=== PATIENT | male | born 1980 | race Caucasian/White ===

== ENCOUNTER 2019-12-03 14:32 | Outpatient (REF) | payer OTHER, SELFPAY | END 2019-12-03 14:33 | disposition home or self-care (01) | LOC: HO.LAB 14:32 | PROVIDERS: Visit Provider Internal Medicine | DX: Z20.828 Contact with and (suspected) exposure to other viral communicable diseases (principal) | CPT/HCPCS: 87635 ==

== ENCOUNTER 2023-10-10 10:02 | Outpatient (AMB) | payer BC, SELFPAY ==
[2023-10-10 10:05] VITALS: BP 166/92; PULSE 87; O2SAT 98; BMI 39.7
--- NOTE | 2023-10-10 10:05 | A.OFFPC_ITS ---
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 Noted to have an elevated blood pressure. ER told him had ekg- changes [facility] Surgical History (Updated 10/10/23 @ 11:09 by Jorge Clark MD) History of carpal tunnel release of both wrists Family History (Updated 10/10/23 @ 10:17 by Carol Garcia CMA) Mother Diabetes Father Hypertension Sister No problems noted. Sister Lupus Thyroid condition Sister Hypertension Sister No problems noted. Son No problems noted. Son No problems noted. Son No problems noted. Son No problems noted. Son No problems noted. Son No problems noted. Daughter No problems noted. Social History (Updated 10/10/23 @ 11:10 by Jorge Clark MD) Housing: Apartment Alcohol intake: current Comment: 3x a week- 2-3 beers Patient Tobacco Use Status: Former Tobacco user Tobacco use type: Cigarette Years Smoked: quit 2013 e-Cigarette/Vaping Use: Former Use Second Hand Smoke Exposure: No service: No Current occupational status: employed Current occupation: Merchandizer at [employer] Current occupational exposures/hazards: No Cognitive needs: No Hearing needs: No Vision needs: No Questionnaire PHQ-9 Over the last 2 weeks, how often have you been bothered by any of the following problems? 1. Little interest or pleasure in doing things: not at all 2. Feeling down, depressed, or hopeless: not at all 3. Trouble falling or staying asleep, or sleeping too much: not at all 4. Feeling tired or having little energy: not at all 5. Poor appetite or overeating: not at all 6. Feeling bad about yourself - or that you are a failure or have let yourself or your family down: not at all 7. Trouble concentrating on things, such as reading the newspaper or watching television: not at all 8. Moving or speaking so slowly that other people could have noticed. Or the opposite - being so fidgety or restless that you have been moving around a lot more than usual: not at all 9. Thoughts that you would be better off or of hurting yourself in some way: not at all Total score: 0 Source: Developed by Drs. Elpidio Mcrae, Eli Sykes, Bentley Rodas and colleagues, with an educational kosta from [employer]. Thrive Questionnaire Date Thrive assessed: 10/10/23 I am a: Patient What is your living situation today?: I have a steady place to live Within the past 12 months, did the food you bought not last and you didn't have the money to get more?: Never true Within the past 12 months, did you worry whether your food would run out before you got money to buy more?: Never true Do you have trouble paying for medicines?: No Do you have trouble getting transportation to medical appointments?: No Do you have trouble paying your heating and electricity bill?: No Do you have trouble taking care of your child, family member or friend?: No Do you have trouble with day-to-day activities such as bathing, preparing meals, shopping, managing finances, etc.?: No Are you currently unemployed and looking for a job?: No Are you interested in more education?: No Please select the resources that you would like help with: None Currently or been in a relationship where the following occur: No concerns reported THRIVE Score: 0 AUDIT C Alcohol Use Questionnaire (AUDIT-C) 1. How often do you have a drink containing alcohol?: Monthly or less 2. How many drinks containing alcohol do you have on a typical day when you are drinking?: 1 or 2 3. How often do you have six or more drinks on one occasion?: Less than monthly Total Score: 2 DALY-7 AMB Questionnaire DALY-7 Date DALY - 7 assessed: 10/10/23 Feeling nervous, anxious, or on edge: 0 = Not at all Not being able to stop or control worryin = Several days Worrying too much about different things: 1 = Several days Trouble relaxin = Nearly every day Being so restless that it is hard to sit still: 0 = Not at all Becoming easily annoyed or irritable: 3 = Nearly every day Feeling afraid as if something awful might happen: 0 = Not at all Total DALY-7 score (0-4 normal; 5-9 mild; 10-14 moderate; 15-21 severe): 8 Source: Developed by Drs. Elpiido Mcrae, Eli Sykes, Bentley Rodas and colleagues, with an educational kosta from [employer]. Physical exam (Primary Care) Vital Signs: Last Vital Signs Pulse 87 10/10/23 10:05 BP 166/92 H 10/10/23 10:05 Pulse Ox 98 10/10/23 10:05 Oxygen Delivery Method Room Air 10/10/23 10:05 BMI result Body Mass Index 39.7 Tobacco/Smoking Status: Tobacco use Status Tobacco use date assessed 10/10/23 10/10/23 10:19 Patient Tobacco Use Status Former Tobacco user 10/10/23 10:19 Tobacco use type Cigarette 10/10/23 10:19 e-Cigarette/Vaping Use Former Use 10/10/23 10:19 PHQ-9: PHQ-9 Score PHQ-9: Total score 0 10/10/23 10:21 Thrive Assessment: Date of Thrive Assessment Date Thrive assessed 10/10/23 10/10/23 10:09 Currently or been in a relationship where the following occur: No concerns reported Const General: alert; No acute distress Eyes Conjunctivae: conjunctivae normal Resp Auscultation: clear to auscultation bilaterally Cardio Rate: regular rate Rhythm: regular rhythm GI Inspection: Yes normal to inspection Extrem General: Yes normal to inspection and No edema Results AMB Hemoglobin A1c AMB Hemoglobin A1c 13.6 % Last Edit by Carol Garcia CMA on 10/10/23 10:21 Results Reviewed Results Reviewed: Laboratory Last Values Hgb A1c (Clinic) 13.6 % (4.0-6.0) H 10/10/23 10:19 Assessment and Plan Assessment & Plan (1) Bilateral carpal tunnel syndrome: Code(s): G56.03 - Carpal tunnel syndrome, bilateral upper limbs (2) Type 2 diabetes mellitus with hyperglycemia: Code(s): E11.65 - Type 2 diabetes mellitus with hyperglycemia Plan: Decrease the amount of carbohydrate intake, pasta, bread, rice and potatoes are all sugar and that is aside from all the sweet stuff, remember that fruits are good but they are Sweet also. Hemoglobin A1c goal of less than 6.5. (3) Hypertriglyceridemia: Code(s): E78.1 - Pure hyperglyceridemia Plan: Avoid fried foods, chicken skin, eggs, butter margarine, pastries and meat. Be it pork or beef they have a lot of cholesterol LDL goal of less than 130 and triglyceride of less than 150. (4) Obesity: Code(s): E66.9 - Obesity, unspecified Plan: Diet and exercise (5) Blood pressure elevated without history of HTN: Code(s): R03.0 - Elevated blood-pressure reading, without diagnosis of hypertension Plan: Monitor the blood pressure and record. Low-salt diet. (6) Hypertension: Code(s): I10 - Essential (primary) hypertension (7) Shoulder pain, right: Code(s): M25.511 - Pain in right shoulder Orders: Orders AMB Hemoglobin A1c Today Z13.9 - Encounter for screening, unspecified XR chest 2V Today M25.511 - Pain in right shoulder Free T4 (Free Thyroxine) Today E11.65 - Type 2 diabetes mellitus with hyperglycemia Creatinine Urine Today E11.65 - Type 2 diabetes mellitus with hyperglycemia Thyroid Stimulating Hormone Today E11.65 - Type 2 diabetes mellitus with hyperglycemia XR shoulder RT min 2V Today M25.511 - Pain in right shoulder Complete Blood Count Auto Diff Today E11.65 - Type 2 diabetes mellitus with hyperglycemia Comprehensive Met. Panel Today E11.65 - Type 2 diabetes mellitus with hyperglycemia Microalbumin, Random (w Creat) Today E11.65 - Type 2 diabetes mellitus with hyperglycemia Lipid Panel Today E11.65 - Type 2 diabetes mellitus with hyperglycemia, E78.00 - Pure hypercholesterolemia, unspecified Vitamin B12 and Folate Today E11.65 - Type 2 diabetes mellitus with hyperglycemia Referrals Ophthalmology Referral E11.65 - Type 2 diabetes mellitus with hyperglycemia Medications: New metformin 500 mg PO BIDWMEAL 60 tabs 2RF E11.65 - Type 2 diabetes mellitus with hyperglycemia gabapentin 100 mg PO BEDTIME 30 caps 0RF M25.511 - Pain in right shoulder lisinopril 10 mg PO DAILY 30 tabs 2RF I10 - Essential (primary) hypertension Coding Level of Care Code New Pt Level 4 (80145) Diagnoses Bilateral carpal tunnel syndrome G56.03 Type 2 diabetes mellitus with hyperglycemia E11.65 Hypertriglyceridemia E78.1 Obesity E66.9 Blood pressure elevated without history of HTN R03.0 Hypertension I10 Shoulder pain, right M25.511
== END 2023-10-10 11:32 | disposition home or self-care (01) ==
PROVIDERS: PCP Internal Medicine; Visit Provider Internal Medicine
DX: G56.03 Carpal tunnel syndrome, bilateral upper limbs (principal); E11.65 Type 2 diabetes mellitus with hyperglycemia; E66.9 Obesity, unspecified; Z68.39 Body mass index [BMI] 39.0-39.9, adult; E78.1 Pure hyperglyceridemia; R03.0 Elevated blood-pressure reading, without diagnosis of hypertension; I10 Essential (primary) hypertension; M25.511 Pain in right shoulder
CPT/HCPCS: 83036; 99204

== ENCOUNTER 2023-10-10 11:38 | Outpatient (REF) | payer BC, SELFPAY ==
--- NOTE | ~2023-10-10 | XR_ITS ---
EXAMINATION: XR CHEST CLINICAL INFORMATION: Pain COMPARISON: Prior chest dated June 2019 TECHNIQUE: 2 views of the chest were obtained. FINDINGS: No significant abnormality is noted involving the heart, lungs, mediastinum, bony thorax or soft tissues. XR/XR chest 2V IMPRESSION: Unremarkable examination. Electronically signed by: Alonzo Payton MD 10/31/2023 06:44 AM EDT RP
--- NOTE | ~2023-10-10 | XR_ITS ---
EXAMINATION: XR SHOULDER, RIGHT CLINICAL INFORMATION: Pain in right shoulder COMPARISON: None available. TECHNIQUE: AP external rotation, Grashey, scapular Y, and axillary views of the right shoulder. FINDINGS: Tiny calcification adjacent to the greater tuberosity. The glenohumeral joint and acromioclavicular joint are normal. Surrounding bone and soft tissues normal. XR/XR shoulder RT min 2V IMPRESSION: Tiny calcification adjacent to the greater tuberosity. This can be seen with calcific tendinosis or calcific tendinitis. Electronically signed by: Alonzo Payton MD 10/31/2023 06:45 AM EDT
[2023-10-10 11:54] LABS: MANUAL DIFF FLAG NO
[2023-10-10 12:20] LABS: Basophils Percent Auto 0.5 % (0-2); Eosinophils Percent Auto 0.7 % (0-4); Hematocrit 44.8 % (42.0-52.0); Hemoglobin 15.8 g/dl (14.0-18.0); Imm Gran Abs Auto 0.03 X10*3/uL (0.00-0.03); Imm Gran Pct Auto 0.5 % (0.0-0.4); Lymphocytes Absolute Auto 2.3 X10*3/uL (1.2-4.9); Lymphocytes Percent Auto 37.7 % (20-40); Mean Corpuscular HGB Conc 35.3 g/dl (31.0-36.0); Mean Corpuscular Hemoglobin 30.4 pg (27.0-33.0); Mean Corpuscular Volume 86.2 fL (80.0-98.0); Mean Platelet Volume 10.9 fL (9.4-12.4); Monocytes Absolute Auto 0.3 X10*3/uL (0.1-1.2); Neutrophils Absolute Auto 3.4 x10*3/uL (2.0-8.3); Neutrophils Percent Auto 55.6 % (45-73); Platelet Count 260 X10*3/uL (160-400); Red Cell Distribution Width 12.1 % (11.0-16.0); White Blood Count 6.1 X10*3/uL (4.8-10.8)
[2023-10-10 12:42] LABS: Alanine Aminotransferase 53 U/L (0-40); Albumin Level 4.4 g/dL (3.5-5.0); Alkaline Phosphatase 75 U/L (39-117); Anion Gap 16 (12-20); Aspartate Amino Transferase 25 U/L (5-37); Bilirubin Total 0.7 mg/dL (0.0-1.0); Blood Urea Nitrogen 13 mg/dL (9-16); Calcium 9.8 mg/dL (8.4-10.2); Carbon Dioxide 23 mmol/L (22-29); Chloride 102 mmol/L (96-108); Cholesterol 276 mg/dL (<200); Estimated Glomerular Filt Rate > 60; Glucose Random 320 mg/dL (60-115); HDL Cholesterol 34 mg/dL (>40); Potassium 4.5 mmol/L (3.3-5.1); Sodium 136 mmol/L (135-145); Triglycerides 431 mg/dL (<150)
[2023-10-10 12:57] LABS: Free T4 (Free Thyroxine) 0.99 ng/dL (0.71-1.85); Thyroid Stimulating Hormone 0.87 uIU/mL (0.32-4.0)
[2023-10-10 13:10] LABS: Folate 14.1 ng/mL (> or = 4.0); Vitamin B12 567 pg/mL (200-900)
[2023-10-10 14:06] LABS: Creatinine Urine 110.63 mg/dL
== END 2023-10-10 11:39 | disposition home or self-care (01) ==
LOC: HO.LAB 11:38
PROVIDERS: PCP Internal Medicine; Visit Provider Internal Medicine
DX: M25.511 Pain in right shoulder (principal); E11.65 Type 2 diabetes mellitus with hyperglycemia; E78.00 Pure hypercholesterolemia, unspecified
CPT/HCPCS: 36415; 71046; 73030; 80053; 80061; 82043; 82570; 82607; 82746; 84439; 84443; 85025

== ENCOUNTER 2023-11-10 13:54 | Outpatient (AMB) | payer BC, SELFPAY ==
[2023-11-10 14:00] VITALS: BP 162/98; PULSE 105; O2SAT 97; BMI 39.7
--- NOTE | 2023-11-10 14:00 | MHC.PC.OV ---
Vital Signs 11/10/23 14:00 Height 5 ft 6 in Weight 246 lb BMI 39.7 BP 162/98 H Blood Pressure Location Lt brachial Position Sitting Pulse 105 H Pulse Source Pulse Oximeter Pulse Oximetry (%) 97 Oxygen Delivery Method Room Air Intake Visit Reasons: [facility] 10/21 rt chest pain Intake Note: Patient is here to follow-up after a visit the emergency department at [facility] on 10/22/23 Commercial Loan Manager Required: No Allergies No Known Allergies [No Known Allergies*] Allergy (Verified 11/10/23 14:01) Medication List - Last Reconciled 11/10/23 by Ella Barrientos PA-C gabapentin 100 mg PO BEDTIME lisinopril 10 mg PO DAILY metformin 500 mg PO BIDWMEAL Tobacco use date assessed: 11/10/23 Dental Screening Dental Screen Date: 10/10/23 HPI [facility] 10/21 rt chest pain HPI Details 42-year-old male with past medical history of hypertriglyceridemia, diabetes mellitus, hypertension last seen by Dr. Clark coming in for hospital discharge follow up.? In review of the notes, patient was seen in [facility] ED 10/23/2023 for upper right back pain workup was negative and advised to use Tylenol and gabapentin as needed for pain. Was having right-sided shoulder and back pain which was radiating to the chest at the time of the ER visit. Chest pain has resolved at this time but still having right-sided shoulder and armpit pain. He states the pain feels like an electric shock from the right shoulder into the armpit and down his arm occasionally. When he has the episodes of pain he feels his shirt can not even touch his shoulder without severe pain. He was given gabapentin by Dr. Clark at last visit and states this is not improved. [facility] Surgical History (Updated 10/10/23 @ 11:09 by Jorge Clark MD) History of carpal tunnel release of both wrists Family History (Updated 10/10/23 @ 10:17 by Carol Garcia CMA) Mother Diabetes Father Hypertension Sister No problems noted. Sister Lupus Thyroid condition Sister Hypertension Sister No problems noted. Son No problems noted. Son No problems noted. Son No problems noted. Son No problems noted. Son No problems noted. Son No problems noted. Daughter No problems noted. Social History (Updated 10/10/23 @ 11:10 by Jorge Clark MD) Housing: Apartment Alcohol intake: current Comment: 3x a week- 2-3 beers Patient Tobacco Use Status: Former Tobacco user Tobacco use type: Cigarette Years Smoked: quit 2013 e-Cigarette/Vaping Use: Former Use Second Hand Smoke Exposure: No service: No Current occupational status: employed Current occupation: Merchandizer at [employer] Current occupational exposures/hazards: No Cognitive needs: No Hearing needs: No Vision needs: No Questionnaire Thrive Questionnaire Date Thrive assessed: 10/03/23 I am a: Patient What is your living situation today?: I have a steady place to live Within the past 12 months, did the food you bought not last and you didn't have the money to get more?: Never true Within the past 12 months, did you worry whether your food would run out before you got money to buy more?: Never true Do you have trouble paying for medicines?: No Do you have trouble getting transportation to medical appointments?: No Do you have trouble paying your heating and electricity bill?: No Do you have trouble taking care of your child, family member or friend?: No Do you have trouble with day-to-day activities such as bathing, preparing meals, shopping, managing finances, etc.?: No Are you currently unemployed and looking for a job?: No Are you interested in more education?: No Please select the resources that you would like help with: None Currently or been in a relationship where the following occur: No concerns reported THRIVE Score: 0 AUDIT C Alcohol Use Questionnaire (AUDIT-C) 1. How often do you have a drink containing alcohol?: Monthly or less 2. How many drinks containing alcohol do you have on a typical day when you are drinking?: 1 or 2 3. How often do you have six or more drinks on one occasion?: Less than monthly Total Score: 2 DALY-7 AMB Questionnaire DALY-7 Date DALY - 7 assessed: 10/10/23 Source: Developed by Drs. Elpidio Mcrae, Eli Syeks, Bentley Rodas and colleagues, with an educational kosta from [employer]. Review of Systems Const Denies body aches, Denies chills and Denies fever(s) Eyes Reports no additional complaints ENT Reports no additional complaints Card Denies chest pain, Denies leg edema, Denies lightheadedness and Denies dyspnea Resp Denies dyspnea GI Reports no additional complaints Musc Reports as per HPI Skin/Breast Details: No rashes or lesions Physical exam (Primary Care) Vital Signs: Oxygen Delivery Method Room Air 11/10/23 14:00 Tobacco/Smoking Status: Tobacco use Status Tobacco use date assessed 11/10/23 11/10/23 14:02 Patient Tobacco Use Status Former Tobacco user 11/10/23 14:02 Tobacco use type Cigarette 11/10/23 14:02 e-Cigarette/Vaping Use Former Use 11/10/23 14:02 Thrive Assessment: Date of Thrive Assessment Date Thrive assessed 10/03/23 11/10/23 14:02 Currently or been in a relationship where the following occur: No concerns reported Const General: cooperative, healthy appearing, comfortable and no acute distress Orientation/consciousness: patient oriented x3 HENMT Head: Yes normocephalic Ears: hearing grossly normal bilaterally General nose exam: Normal external nose present Eyes General: appearance normal, both eyes and all related structures Conjunctivae: conjunctivae normal Neck Neck: Yes full ROM and Yes no lymphadenopathy Resp Effort & Inspection: normal respiratory effort Auscultation: clear to auscultation bilaterally, no crackles, no rales, no rhonchi and no wheezes Cardio Rate: regular rate Rhythm: regular rhythm Skin General skin exam: no rashes or lesions noted Neuro General: patient oriented x3 Gait exam (Neuro): Normal gait present Extrem Other: Tenderness to palpation over right lateral shoulder into axillary area General: Yes normal to inspection, Yes full ROM and No edema Psych Affect: normal affect Attitude: cooperative Insight: Good insight present (Psych) Judgement: Good judgement present (Psych) Assessment and Plan Assessment & Plan (1) Shoulder pain, right: Code(s): M25.511 - Pain in right shoulder Plan: Patient continues to have pain in the right shoulder despite use of gabapentin. Shoulder x-ray and chest x-ray are both negative. Etiology of pain unclear could be muscular. Trial muscle relaxer as needed for pain and advised patient to discontinue the gabapentin while taking this medication. May also use Tylenol and ibuprofen as well as lidocaine patches for pain. Follow up as needed. (2) Hypertension: Code(s): I10 - Essential (primary) hypertension Plan: Blood pressure elevated again at today's visit and patient states his home readings have also been elevated over 140/90. Increase lisinopril to 20 mg and follow up at next visit. Continue to avoid salt and continue taking blood pressures at home and bring log to next appointment. Plan This note was constructed using voice recognition software. While every effort has been made to ensure accuracy and garage supervisor, still areas may have been included sometimes these areas may affect the content or meeting of the given symptoms. Total time spent caring for the patient today was 30 minutes. This includes time spent before the visit reviewing the chart, time spent during the visit, and time spent after the visit and documentation. Medications: New cyclobenzaprine 5 mg PO BEDTIME PRN 14 tabs 0RF muscle spasm lisinopril 20 mg PO DAILY 30 tabs 1RF Discontinued lisinopril Discontinued Reason: Patient no longer taking 10 mg PO DAILY 90 tabs 0RF I10 - Essential (primary) hypertension Coding Level of Care Code Est Pt Level 3 (09998) Diagnoses Shoulder pain, right M25.511 Hypertension I10
== END 2023-11-10 14:47 | disposition home or self-care (01) ==
PROVIDERS: PCP Internal Medicine
DX: M25.511 Pain in right shoulder (principal); I10 Essential (primary) hypertension

== ENCOUNTER → 2023-11-10 13:54 | Outpatient (BNVA) | payer BC, SELFPAY | PROVIDERS: PCP Internal Medicine | DX: M25.511 Pain in right shoulder (principal); I10 Essential (primary) hypertension; Z79.899 Other long term (current) drug therapy ==

== ENCOUNTER 2023-11-27 11:19 | Outpatient (AMB) | payer BC, SELFPAY ==
[2023-11-27 11:20] VITALS: BP 168/96; PULSE 92; O2SAT 98; BMI 39.4
--- NOTE | 2023-11-27 11:20 | MHC.PC.OV ---
Vital Signs 11/27/23 11:20 Height 5 ft 6 in Weight 244 lb BMI 39.4 BP 168/96 H Blood Pressure Location Lt brachial Position Sitting Pulse 92 Pulse Source Pulse Oximeter Pulse Oximetry (%) 98 Oxygen Delivery Method Room Air Intake Visit Reasons: DM Allergies No Known Allergies [No Known Allergies*] Allergy (Verified 11/27/23 11:24) Medication List - Last Reconciled 11/27/23 by Ella Barrientos PA-C gabapentin 100 mg PO BEDTIME lisinopril 20 mg PO DAILY metformin 500 mg PO BIDWMEAL Tobacco use date assessed: 11/10/23 Dental Screening Dental Screen Date: 10/10/23 HPI DM HPI Details 42-year-old male with past medical history of hypertriglyceridemia, diabetes mellitus, hypertension last seen November 06 coming in for follow up on diabetes. Review of the notes, patient's lisinopril was intake to 20 mg at last appointment. today he tells us he has been taking his blood pressures at home which have been 150-160 systolic and 90s diastolic. He has not noticed an improvement in pressures since the increase in lisinopril. His blood sugars are consistently in the 200-300 range but he has been working on cutting down on carbs and has eliminated soda and juices from his diet. He has no other concerns today. [facility] Surgical History (Updated 10/10/23 @ 11:09 by Jorge Clark MD) History of carpal tunnel release of both wrists Family History (Updated 10/10/23 @ 10:17 by Carol Garcia CMA) Mother Diabetes Father Hypertension Sister No problems noted. Sister Lupus Thyroid condition Sister Hypertension Sister No problems noted. Son No problems noted. Son No problems noted. Son No problems noted. Son No problems noted. Son No problems noted. Son No problems noted. Daughter No problems noted. Social History (Updated 10/10/23 @ 11:10 by Jorge Clark MD) Housing: Apartment Alcohol intake: current Comment: 3x a week- 2-3 beers Patient Tobacco Use Status: Former Tobacco user Tobacco use type: Cigarette Years Smoked: quit 2013 e-Cigarette/Vaping Use: Former Use Second Hand Smoke Exposure: No service: No Current occupational status: employed Current occupation: Merchandizer at [employer] Current occupational exposures/hazards: No Cognitive needs: No Hearing needs: No Vision needs: No Questionnaire Thrive Questionnaire Date Thrive assessed: 10/03/23 I am a: Patient What is your living situation today?: I have a steady place to live Within the past 12 months, did the food you bought not last and you didn't have the money to get more?: Never true Within the past 12 months, did you worry whether your food would run out before you got money to buy more?: Never true Do you have trouble paying for medicines?: No Do you have trouble getting transportation to medical appointments?: No Do you have trouble paying your heating and electricity bill?: No Do you have trouble taking care of your child, family member or friend?: No Do you have trouble with day-to-day activities such as bathing, preparing meals, shopping, managing finances, etc.?: No Are you currently unemployed and looking for a job?: No Are you interested in more education?: No Please select the resources that you would like help with: None Currently or been in a relationship where the following occur: No concerns reported THRIVE Score: 0 AUDIT C Alcohol Use Questionnaire (AUDIT-C) 1. How often do you have a drink containing alcohol?: Monthly or less 2. How many drinks containing alcohol do you have on a typical day when you are drinking?: 1 or 2 3. How often do you have six or more drinks on one occasion?: Less than monthly Total Score: 2 DALY-7 AMB Questionnaire DALY-7 Date DALY - 7 assessed: 10/10/23 Source: Developed by Drs. Elpidio Mcrae, Eli Sykes, Bentley Rodas and colleagues, with an educational kosta from [employer]. Review of Systems Const Denies body aches and Denies fever(s) ENT Reports no additional complaints Card Denies chest pain, Denies leg ulcers, Denies leg edema, Denies lightheadedness and Denies dyspnea Resp Denies dyspnea GI Reports no additional complaints Denies dysuria and Reports urinary frequency Musc Reports no additional complaints Neuro Details: Numbness and tingling in bilateral feet Physical exam (Primary Care) Vital Signs: Last Vital Signs Pulse 92 11/27/23 11:20 BP 168/96 H 11/27/23 11:20 Pulse Ox 98 11/27/23 11:20 Oxygen Delivery Method Room Air 11/27/23 11:20 BMI result Body Mass Index 39.4 Tobacco/Smoking Status: Tobacco use Status Tobacco use date assessed 11/10/23 11/27/23 11:30 Patient Tobacco Use Status Former Tobacco user 11/27/23 11:30 Tobacco use type Cigarette 11/27/23 11:30 e-Cigarette/Vaping Use Former Use 11/27/23 11:30 Thrive Assessment: Date of Thrive Assessment Date Thrive assessed 10/03/23 11/27/23 11:30 Currently or been in a relationship where the following occur: No concerns reported Const General: cooperative, healthy appearing, comfortable and no acute distress Orientation/consciousness: patient oriented x3 HENMT Head: Yes normocephalic Ears: hearing grossly normal bilaterally General nose exam: Normal external nose present Eyes General: appearance normal, both eyes and all related structures Conjunctivae: conjunctivae normal Neck Neck: Yes full ROM and Yes no lymphadenopathy Resp Effort & Inspection: normal respiratory effort Auscultation: clear to auscultation bilaterally, no crackles, no rales, no rhonchi and no wheezes Cardio Rate: regular rate Rhythm: regular rhythm Skin General skin exam: no rashes or lesions noted Neuro General: patient oriented x3 Gait exam (Neuro): Normal gait present Extrem General: Yes normal to inspection, Yes full ROM and No edema Psych Affect: normal affect Attitude: cooperative Insight: Good insight present (Psych) Judgement: Good judgement present (Psych) Coding Level of Care Code Est Pt Level 4 (44816) Diagnoses Hypertension I10 Hypertriglyceridemia E78.1 Type 2 diabetes mellitus with hyperglycemia E11.65 Assessment & Plan Assessment & Plan (1) Hypertension: Code(s): I10 - Essential (primary) hypertension Category: Medical Plan: Changed Lisinopril 20mg to Lisinopril-HCTZ combo pill to bring down the pressures. Avoid salt intake and encourage healthy diet and regular exercise. Follow up in 2 months and continue to monitor pressures during that time and bring log to next appt. (2) Hypertriglyceridemia: Code(s): E78.1 - Pure hyperglyceridemia Category: Medical Plan: Avoid foods that are high in cholesterol such as red meat, fried foods, eggs and baked goods. Triglyceride goal of less than 150 and LDL goal of less than 100. Will start patient on Simvastatin 20mg and recheck labs in 2 months prior to next appt. Discussed the importance of dietary and lifestyle changes. (3) Type 2 diabetes mellitus with hyperglycemia: Code(s): E11.65 - Type 2 diabetes mellitus with hyperglycemia Category: Medical Plan: Decrease the amount of carbohydrates such as pasta, bread, rice, and potatoes and limit the amount of sweets. Although fruits are generally healthy they should be eaten in moderation as they are still high in sugar. Hemoglobin A1c goal of less than 7%. Continue on Metformin and will add Ozempic to medication regimen. Advised patient to have updated bloodwork before next appt in 2 months. Plan This note was constructed using voice recognition software. While every effort has been made to ensure accuracy and biodiesel product development manager, still areas may have been included sometimes these areas may affect the content or meeting of the given symptoms. Total time spent caring for the patient today was 30 minutes. This includes time spent before the visit reviewing the chart, time spent during the visit, and time spent after the visit and documentation. Orders: Orders Lipid Panel Today Z00.00 - Encounter for general adult medical examination without abnormal findings Medications: New lisinopril-hydrochlorothiazide 20-12.5 mg 1 tab PO DAILY 30 tabs 2RF simvastatin 20 mg PO BEDTIME 30 tabs 2RF semaglutide (Ozempic) for 4 weeks; then increase to 0.5 mg every week 0.25 mg (0.368 mL) subcut QWEEK 3 mL 0RF Discontinued lisinopril Discontinued Reason: Patient no longer taking 20 mg PO DAILY 30 tabs 1RF
== END 2023-11-27 12:12 | disposition home or self-care (01) ==
PROVIDERS: PCP Internal Medicine
DX: I10 Essential (primary) hypertension (principal); E78.1 Pure hyperglyceridemia; E11.65 Type 2 diabetes mellitus with hyperglycemia

== ENCOUNTER → 2023-11-27 11:19 | Outpatient (BNVA) | payer BC, SELFPAY | PROVIDERS: PCP Internal Medicine ==

== ENCOUNTER 2024-01-06 08:14 | Outpatient (REF) | payer BC, SELFPAY ==
[2024-01-06 09:27] LABS: Estimated Average Glucose 255 mg/dL; Hemoglobin A1C 339.7281 umol/L; Hemoglobin A1c % 10.5 % (<6.0); Total Hemoglobin (HGBA1C) 3710.4418 umol/L
[2024-01-06 09:51] LABS: Alanine Aminotransferase 48 U/L (0-40); Albumin Level 4.4 g/dL (3.5-5.0); Alkaline Phosphatase 56 U/L (39-117); Anion Gap 11 (12-20); Aspartate Amino Transferase 29 U/L (5-37); Bilirubin Total 0.5 mg/dL (0.0-1.0); Blood Urea Nitrogen 22 mg/dL (9-16); Calcium 9.6 mg/dL (8.4-10.2); Carbon Dioxide 24 mmol/L (22-29); Chloride 107 mmol/L (96-108); Cholesterol 145 mg/dL (<200); Estimated Glomerular Filt Rate > 60; Glucose Random 153 mg/dL (60-115); HDL Cholesterol 32 mg/dL (>40); LDL Cholesterol Calculated 92 mg/dL (<100); Sodium 137 mmol/L (135-145); Total Protein 7.6 g/dL (6.5-8.0); Triglycerides 108 mg/dL (<150)
== END 2024-01-06 08:15 | disposition home or self-care (01) ==
LOC: HO.LAB 08:14
PROVIDERS: PCP Internal Medicine; Referring Provider Internal Medicine
DX: E78.00 Pure hypercholesterolemia, unspecified (principal); E78.1 Pure hyperglyceridemia; Z13.1 Encounter for screening for diabetes mellitus
CPT/HCPCS: 36415; 80053; 80061; 83036

== ENCOUNTER 2024-01-27 08:23 | Outpatient (REF) | payer BC, SELFPAY ==
--- OUTSIDE RECORDS SUMMARY | 2024-01-27 08:26 | XMS_ITS | Patient Health Record ---
Demographics Address [address] [place] [address] Mobile Email Address Preferred Language es Marital Status Jewish Affiliation Unknown Race Unknown Additional Race(s) Other Race Ethnic Group or Author Organization [facility] Address [address] [place] [address] Support Name Relationship Address Phone Lauren Cruz Emergency Contact [address] [place] [address] Jim Ross Guarantor Unknown [phone] Care Team Providers Care Paraprofessional Education Assistant Name Role Phone Urbano Raines DO Primary Care Provider [place] Unavailable [phone] Allergies No Known Allergies Reason For Referral No Information Medications Medication SIG (Take, Route, Frequency, Duration) Notes Start Date End Date Status hydroCHLOROthiazide 12.5 MG 1 tablet in the morning Orally Once a day for 30 day(s) Active Basaglar KwikPen Act abbi Atorvastatin Calcium 20 MG 1 tablet Oral ly Once a day for 30 day(s) Active Doxazosin Mesylate 1 MG 1 tablet Orally Once a day for 30 day(s) Active Pioglitazone HCl 15 MG 1 tablet Orally O nce a day for 30 day(s) Active Irbesartan 300 MG 1 tablet Orally Once a day for 30 day(s) Active Trulicity 4.5 MG/0.5ML as directed Subcutaneous Active metFORMIN HCl 1000 MG 1 tablet with a me al Orally Once a day for 30 day(s) Active Piroxicam 20 MG TAKE 1 CAPSULE BY [facility] EVERY DAY WITH FOOD FOR 30 DAYS for 30 Active amLODIPine Besylate 10 MG 1 tablet Orall y Once a day for 30 day(s) Active Famotidine 20 MG 1 tablet at bedtime as needed Orally Once a day for 30 day(s) Active Social History Tobacco Use: Social History Observation Description Date Details (start date - stop date) Never Smoker NA - NA Tobacco Use/Smoking Question Answer Notes Are you a: nonsmoker Alcohol Screen Question Answer Notes Did you have a drink containing alcohol in the p ast year? No Points 0 Interpretation Negative Tobacco use other than smoking: Question Answer Notes Are you an other tobacco user? No Problems Problem Type SNOMED Code ICD Code Onset Dates Problem Status W/U Status Risk Notes Problem [id number] Type 2 diabetes mellitus with polyneuropathy (E11.42) Active confirmed Plan Of Treatment Pending Test Test Name Order Date X ray : Foot, left 3V 02/22/2022 X ray : Foot, right 3V 02/22/2022 Insurance Providers Payer Name Payer Address Payer Phone Subscriber Number Group Number Insured Name Patient Relationship to Insured Coverage Start Date Coverage End Date [facility] [address] [place] [address] [id number] Jim Woo Self - patient is the insured Medical (General) History Medical History History ICD Code Hypertension type II diabetes Gall bladder problems Numbness Surgical History Surgery Date(Month/Year) carpal tunnel surgery
[2024-01-27 09:21] LABS: Cholesterol 143 mg/dL (<200); HDL Cholesterol 30 mg/dL (>40); LDL Cholesterol Calculated 84 mg/dL (<100); Triglycerides 146 mg/dL (<150)
== END 2024-01-27 08:24 | disposition home or self-care (01) ==
LOC: HO.LAB 08:23
PROVIDERS: PCP Internal Medicine
DX: Z00.00 Encounter for general adult medical examination without abnormal findings (principal)
CPT/HCPCS: 36415; 80061

== ENCOUNTER 2024-01-30 09:51 | Outpatient (AMB) | payer BC, SELFPAY ==
--- NOTE | 2024-01-30 09:54 | A.OFFPC_ITS ---
Vital Signs 01/30/24 09:55 01/30/24 10:16 Height 5 ft 6 in Weight 238 lb BMI 38.4 BP 120/82 130/88 Blood Pressure Location Lt brachial Lt brachial Position Sitting Sitting Pulse 88 Pulse Source Pulse Oximeter Pulse Oximetry (%) 99 Oxygen Delivery Method Room Air Intake Visit Reasons: 2 Month F/U Intake Note: Patient is here to follow up on DM, HTN. Oil Well Gun Perforator Operator Required: No Behavioral School Counselors: Not Required per policy Accompanied by: Self / Same As Patient Allergies No Known Allergies [No Known Allergies*] Allergy (Verified 01/30/24 09:55) Medication List - Last Reconciled 01/30/24 by Ella Barrientos PA-C gabapentin 100 mg PO BEDTIME lisinopril-hydrochlorothiazide 20-12.5 mg 1 tab PO DAILY metformin 500 mg PO BIDWMEAL semaglutide (Ozempic) 0.5 mg (0.736 mL) subcut QWEEK simvastatin 20 mg PO BEDTIME Tobacco use date assessed: 01/30/24 Dental Screening Dental Screen Date: 10/10/23 HPI 2 Month F/U HPI Details 43-year-old male with past medical histo ry of hypertriglyceridemia, diabetes mellitus, hypertension last seen November 2023 coming in for follow up.?At his last visit lisinopril 20 mg was increased to lisinopril-HCTZ combo pill and started on simvastatin 20 mg. Patient states his blood pressures at home have continued to be elevated however he does often take them when he is under stress or yelling at his children. He states he does monitor his blood sugars at home and they have been below 200 without any values over 200 or any values less than 70. States he has not been taking the metformin as he thought the Ozempic was a replacement for this medication. He also mentions having pain in bilateral feet and we will occasionally have tingling on the bottom of the feet. He is on gabapentin for this concern. [facility] Surgical History History of carpal tunnel release of both wrists Family History Mother Diabetes Father Hypertension Sister No problems noted. Sister Lupus Thyroid condition Sister Hypertension Sister No problems noted. Son No problems noted. Son No problems noted. Son No problems noted. Son No problems noted. Son No problems noted. Son No problems noted. Daughter No problems noted. Social History Housing: Apartment Alcohol intake: current Comment: 3x a week- 2-3 beers Patient Tobacco Use Status: Former Tobacco user Tobacco use type: Cigarette Years Smoked: quit 2013 e-Cigarette/Vaping Use: Former Use Second Hand Smoke Exposure: Yes service: No Current occupational status: employed Current occupation: Merchandizer at [employer] Current occupational exposures/hazards: No Cognitive needs: No Hearing needs: No Vision needs: No Questionnaire Thrive Questionnaire Date Thrive assessed: 10/03/23 I am a: Patient What is your living situation today?: I have a steady place to live Within the past 12 months, did the food you bought not last and you didn't have the money to get more?: Never true Within the past 12 months, did you worry whether your food would run out before you got money to buy more?: Never true Do you have trouble paying for medicines?: No Do you have trouble getting transportation to medical appointments?: No Do you have trouble paying your heating and electricity bill?: No Do you have trouble taking care of your child, family member or friend?: No Do you have trouble with day-to-day activities such as bathing, preparing meals, shopping, managing finances, etc.?: No Are you currently unemployed and looking for a job?: No Are you interested in more education?: No Please select the resources that you would like help with: None Currently or been in a relationship where the following occur: No concerns reported THRIVE Score: 0 DALY-7 AMB Questionnaire DALY-7 Date DALY - 7 assessed: 10/10/23 Source: Developed by Drs. Elpidio Mcrae, Eli Sykes, Bentley Rodas and colleagues, with an educational kosta from [employer]. Review of Systems Const Denies body aches, Denies chills, Denies fever(s), Denies headache(s) and Denies poor appetite Eyes Reports no additional complaints ENT Denies dizziness and Denies headache(s) Card Denies chest pain, Denies lightheadedness and Denies dyspnea Resp Denies cough and Denies dyspnea GI Denies abdominal pain, Denies nausea and Denies vomiting Reports no additional complaints Musc Reports as per HPI and Denies abnormal gait Skin/Breast Reports system reviewed and no additional complaints, except as documented Neuro Denies abnormal gait, Denies dizziness and Denies headache(s) Psych Reports no additional complaints Physical exam (Primary Care) Vital Signs: Last Vital Signs Pulse 88 01/30/24 09:55 BP 130/88 01/30/24 10:16 Pulse Ox 99 01/30/24 09:55 Oxygen Delivery Method Room Air 01/30/24 09:55 BMI result Body Mass Index 38.4 Tobacco/Smoking Status: Tobacco use Status Tobacco use date assessed 01/30/24 01/30/24 09:59 Patient Tobacco Use Status Former Tobacco user 01/30/24 09:59 Tobacco use type Cigarette 01/30/24 09:59 e-Cigarette/Vaping Use Former Use 01/30/24 09:59 Thrive Assessment: Date of Thrive Assessment Date Thrive assessed 10/03/23 01/30/24 09:59 Currently or been in a relationship where the following occur: No concerns reported Const General: cooperative, healthy appearing, comfortable and no acute distress Orientation/consciousness: patient oriented x3 HENMT Head: Yes normocephalic Ears: hearing grossly normal bilaterally General nose exam: Normal external nose present Eyes General: appearance normal, both eyes and all related structures Conjunctivae: conjunctivae normal Neck Neck: Yes full ROM and Yes no lymphadenopathy Resp Effort & Inspection: normal respiratory effort Auscultation: clear to auscultation bilaterally, no crackles, no rales, no rhonchi and no wheezes Cardio Rate: regular rate Rhythm: regular rhythm Skin General skin exam: no rashes or lesions noted Neuro General: patient oriented x3 Gait exam (Neuro): Normal gait present Extrem General: Yes normal to inspection, Yes full ROM and No edema Psych Affect: normal affect Attitude: cooperative Insight: Good insight present (Psych) Judgement: Good judgement present (Psych) Office Procedures Flu Questionnaire Does the patient have a severe egg allergy?: No Does the patient have severe life threatening allergies?: No Does the patient have a fever or illness today?: No Has the patient ever had Guillain-[place] Syndrome?: No Has the patient ever had any past reaction to a flu shot?: No Immunizations Fluarix Triv [id number] (PF) 45 mcg (15 mcg x 3)/0.5 mL IM syringe Performing Provider: Ella Barrientos PA-C [place] [place] [facility] Administered by: Nadeen Solo RN on 01/30/24 10:09 Dose Route Admin Location Dispensed Lot Number Expiration Date NDC Ragman 0.5 mL IM Left Deltoid 0.5 mL [id number] 08/12/24 [id number] Hello Curry VIS Given Date VIS Provided VIS Publication Date 01/30/24 Single Vaccine 20 Eligibility Eligibility Date Funding Source Not [facility] Eligible 01/30/24 Private Coding Level of Care Code Est Pt Level 4 (00133) Diagnoses Hypertension I10 Obesity E66.9 Hypertriglyceridemia E78.1 Type 2 diabetes mellitus with hyperglycemia E11.65 Lower extremity numbness R20.0 Assessment & Plan Assessment & Plan (1) Hypertension: Code(s): I10 - Essential (primary) hypertension Category: Medical Plan: Continue on current blood pressure medication. Avoid salt intake and encourage healthy diet and regular exercise. Reviewed with patient the appropriate way to take his blood pressure while at home when he is relaxed and has been sitting for several minutes. Patient we will continue to take his blood pressure at home and bring a log to his next visit. Blood pressure at goal in the clinic today. (2) Obesity: Code(s): E66.9 - Obesity, unspecified Category: Medical Plan: Healthy diet and regular exercise is encouraged. (3) Hypertriglyceridemia: Code(s): E78.1 - Pure hyperglyceridemia Category: Medical Plan: Avoid foods that are high in cholesterol such as red meat, fried foods, eggs and baked goods. Triglyceride goal of less than 150 and LDL goal of less than 100. Continue on Simvastatin 20mg. Cholesterol at goal on last labs. (4) Type 2 diabetes mellitus with hyperglycemia: Code(s): E11.65 - Type 2 diabetes mellitus with hyperglycemia Category: Medical Plan: Decrease the amount of carbohydrates such as pasta, bread, rice, and potatoes and limit the amount of sweets. Although fruits are generally healthy they should be eaten in moderation as they are still high in sugar. Hemoglobin A1c goal of less than 7%. Presently on Semaglutide 0.5mg and metformin BID. Discussed with patient the importance of restarting the metformin as his A1c has been improving with the semaglutide but he should be taking the metformin in conjunction with this medication. Patient agrees to continue monitoring blood sugars and follow up in 2 months for repeat A1c. (5) Lower extremity numbness: Code(s): R20.0 - Anesthesia of skin Category: Medical Plan: Patient complaining of bilateral feet numbness and tingling discussed this is likely related to his elevated blood sugars. Sensation intact as well as pulses. Continue on gabapentin for pain at night and advised good control of blood sugars. Plan This note was constructed using voice recognition software. While every effort has been made to ensure accuracy and drama therapist, still areas may have been included sometimes these areas may affect the content or meeting of the given symptoms. Total time spent caring for the patient today was 30 minutes. This includes time spent before the visit reviewing the chart, time spent during the visit, and time spent after the visit and documentation. Orders: Orders Influenza [id number] Immunization Today Z23 - Encounter for immunization Medications: Refilled gabapentin 100 mg PO BEDTIME 30 caps 0RF M25.511 - Pain in right shoulder
--- OUTSIDE RECORDS SUMMARY | 2024-01-30 09:54 | XMS_ITS | Patient Health Record ---
Demographics Address [address] [place] [address] Mobile Email Address Preferred Language es Marital Status Yarsani Affiliation Unknown Race Unknown Additional Race(s) Other Race Ethnic Group or Author Organization [facility] Address [address] [place] [address] Support Name Relationship Address Phone Lauren Cruz Emergency Contact [address] [place] [address] Jim Ross Guarantor Unknown [phone] Care Team Providers Care Plastics Fabrication Supervisor Name Role Phone Urbano Raines DO Primary Care Provider [place] Unavailable [phone] Allergies No Known Allergies Reason For Referral [...] Piroxicam 20 MG TAKE 1 CAPSULE BY [facility] EVERY DAY WITH FOOD FOR 30 DAYS [...] Problem Status W/U Status Risk Notes Problem [id number] Type 2 diabetes mellitus with polyneuropathy (E11.42) Active confirmed Plan Of Treatment Pending Test Test Name Order Date X ray : Foot, left 3V 02/22/2022 X ray : Foot, right 3V 02/22/2022 Insurance Providers Payer Name Payer Address Payer Phone Subscriber Number Group Number Insured Name Patient Relationship to Insured Coverage Start Date Coverage End Date [facility] [address] [place] [address] [id number] Jim Woo Self - patient is the insured Medical (General) History Medical History History ICD Code Hypertension type II diabetes Gall bladder problems Numbness Surgical History Surgery Date(Month/Year) carpal tunnel surgery
[2024-01-30 09:55] VITALS: BP 120/82; PULSE 88; O2SAT 99; BMI 38.4
--- NOTE | 2024-01-30 10:09 | AM.OFFVISNUR ---
Vital Signs 01/30/24 09:55 Height 5 ft 6 in Weight 238 lb BMI 38.4 BP 120/82 Blood Pressure Location Lt brachial Position Sitting Pulse 88 Pulse Source Pulse Oximeter Pulse Oximetry (%) 99 Oxygen Delivery Method Room Air Intake Visit Reasons: 2 Month F/U Allergies No Known Allergies [No Known Allergies*] Allergy (Verified 01/30/24 09:55) Medication List - Last Reconciled 01/30/24 by Ella Barrientos PA-C gabapentin 100 mg PO BEDTIME lisinopril-hydrochlorothiazide 20-12.5 mg 1 tab PO DAILY metformin 500 mg PO BIDWMEAL semaglutide (Ozempic) 0.5 mg (0.736 mL) subcut QWEEK simvastatin 20 mg PO BEDTIME Office Procedures Flu Questionnaire Does the patient have a severe egg allergy?: No Does the patient have severe life threatening allergies?: No Does the patient have a fever or illness today?: No Has the patient ever had Guillain-[place] Syndrome?: No Has the patient ever had any past reaction to a flu shot?: No Immunizations Fluarix Triv [id number] (PF) 45 mcg (15 mcg x 3)/0.5 mL IM syringe Performing Provider: Ella Barrientos PA-C [place] [facility] [place] [facility] Administered by: Nadeen Solo RN on 01/30/24 10:09 Dose Route Admin Location Dispensed Lot Number Expiration Date NDC Live Study Manager 0.5 mL IM Left Deltoid 0.5 mL [id number] 08/12/24 [id number] [facility] Given Date VIS Provided VIS Publication Date 01/30/24 Single Vaccine 20 Eligibility Eligibility Date Funding Source Not [facility] Eligible 01/30/24 Private Assessment & Plan Assessment & Plan (1) Hypertension: Code(s): I10 - Essential (primary) hypertension Category: Medical (2) Obesity: Code(s): E66.9 - Obesity, unspecified Category: Medical (3) Hypertriglyceridemia: Code(s): E78.1 - Pure hyperglyceridemia Category: Medical (4) Type 2 diabetes mellitus with hyperglycemia: Code(s): E11.65 - Type 2 diabetes mellitus with hyperglycemia Category: Medical Orders: Orders Influenza [id number] Immunization Today Z23 - Encounter for immunization Medications: New Fluarix Triv [id number] (PF) (flu vacc [id number] 6mos up(PF)) 0.5 mL IM ONCE 0.5 mL 0RF NS Z23 - Encounter for immunization
[2024-01-30 10:16] VITALS: BP 130/88
== END 2024-01-30 10:25 | disposition home or self-care (01) ==
PROVIDERS: PCP Internal Medicine
DX: E11.65 Type 2 diabetes mellitus with hyperglycemia (principal); I10 Essential (primary) hypertension; Z68.38 Body mass index [BMI] 38.0-38.9, adult; E66.9 Obesity, unspecified; E78.1 Pure hyperglyceridemia; R20.0 Anesthesia of skin; Z23 Encounter for immunization

== ENCOUNTER → 2024-01-30 09:51 | Outpatient (BNVA) | payer BC, SELFPAY | PROVIDERS: PCP Internal Medicine | DX: I10 Essential (primary) hypertension (principal); E66.9 Obesity, unspecified; E78.1 Pure hyperglyceridemia; E11.65 Type 2 diabetes mellitus with hyperglycemia; R20.0 Anesthesia of skin; Z79.899 Other long term (current) drug therapy; Z23 Encounter for immunization | CPT/HCPCS: 90471; 90656 ==

== ENCOUNTER 2024-04-05 11:02 | Outpatient (AMB) | payer BC, SELFPAY ==
--- NOTE | 2024-04-05 11:07 | MHC.PC.OV ---
Vital Signs 04/05/24 11:08 Height 5 ft 6 in Weight 242 lb BMI 39.1 BP 132/82 Blood Pressure Location Lt brachial Position Sitting Pulse 87 Pulse Source Pulse Oximeter Pulse Oximetry (%) 98 Oxygen Delivery Method Room Air Intake Visit Reasons: f/u DM and HTN Allergies No Known Allergies [No Known Allergies*] Allergy (Verified 04/05/24 11:08) Medication List - Last Reconciled 04/05/24 by Jorge Clark MD gabapentin 100 mg PO BEDTIME lisinopril-hydrochlorothiazide 20-12.5 mg 1 tab PO DAILY metformin 500 mg PO BID semaglutide (Ozempic) 0.5 mg (0.736 mL) subcut QWEEK simvastatin 20 mg PO BEDTIME Tobacco use date assessed: 04/05/24 Dental Screening Dental Screen Date: 04/05/24 Did you have a dental visit in the last 12 months?: No Did you have a dental problem in the last 6 months where you did not have access to dental care?: No Was dental information given to patient?: Patient has dentist [facility] Surgical History History of carpal tunnel release of both wrists Family History Mother Diabetes Father Hypertension Sister No problems noted. Sister Lupus Thyroid condition Sister Hypertension Sister No problems noted. Son No problems noted. Son No problems noted. Son No problems noted. Son No problems noted. Son No problems noted. Son No problems noted. Daughter No problems noted. Social History Housing: Apartment Alcohol intake: current Comment: 3x a week- 2-3 beers Patient Tobacco Use Status: Former Tobacco user Tobacco use type: Cigarette Years Smoked: quit 2013 e-Cigarette/Vaping Use: Former Use Second Hand Smoke Exposure: Yes service: No Current occupational status: employed Current occupation: Merchandizer at [employer] Current occupational exposures/hazards: No Cognitive needs: No Hearing needs: No Vision needs: No Questionnaire PHQ-9 Over the last 2 weeks, how often have you been bothered by any of the following problems? 1. Little interest or pleasure in doing things: not at all 2. Feeling down, depressed, or hopeless: not at all 3. Trouble falling or staying asleep, or sleeping too much: not at all 4. Feeling tired or having little energy: not at all 5. Poor appetite or overeating: not at all 6. Feeling bad about yourself - or that you are a failure or have let yourself or your family down: not at all 7. Trouble concentrating on things, such as reading the newspaper or watching television: not at all 8. Moving or speaking so slowly that other people could have noticed. Or the opposite - being so fidgety or restless that you have been moving around a lot more than usual: not at all 9. Thoughts that you would be better off or of hurting yourself in some way: not at all Total score: 0 Source: Developed by Drs. Elpidio Mcrae, Eli Sykes, Bentley Rodas and colleagues, with an educational kosta from [employer]. Thrive Questionnaire Date Thrive assessed: 04/05/24 I am a: Patient What is your living situation today?: I have a steady place to live Within the past 12 months, did the food you bought not last and you didn't have the money to get more?: Never true Within the past 12 months, did you worry whether your food would run out before you got money to buy more?: Never true Do you have trouble paying for medicines?: No Do you have trouble getting transportation to medical appointments?: No Do you have trouble paying your heating and electricity bill?: No Do you have trouble taking care of your child, family member or friend?: No Do you have trouble with day-to-day activities such as bathing, preparing meals, shopping, managing finances, etc.?: No Are you currently unemployed and looking for a job?: No Are you interested in more education?: No Please select the resources that you would like help with: None Currently or been in a relationship where the following occur: No concerns reported THRIVE Score: 0 AUDIT C Alcohol Use Questionnaire (AUDIT-C) 3. How often do you have six or more drinks on one occasion?: Weekly Total Score: 3 DALY-7 AMB Questionnaire DALY-7 Date DALY - 7 assessed: 04/05/24 Feeling nervous, anxious, or on edge: 0 = Not at all Not being able to stop or control worryin = Not at all Worrying too much about different things: 0 = Not at all Trouble relaxin = Not at all Being so restless that it is hard to sit still: 0 = Not at all Becoming easily annoyed or irritable: 0 = Not at all Feeling afraid as if something awful might happen: 0 = Not at all Total DALY-7 score (0-4 normal; 5-9 mild; 10-14 moderate; 15-21 severe): 0 Source: Developed by Drs. Elpidio Mcrae, Eli Sykes, Bentley Rodas and colleagues, with an educational kosta from [employer]. Physical exam (Primary Care) Vital Signs: Last Vital Signs Pulse 87 04/05/24 11:08 BP 132/82 04/05/24 11:08 Pulse Ox 98 04/05/24 11:08 Oxygen Delivery Method Room Air 04/05/24 11:08 BMI result Body Mass Index 39.1 Tobacco/Smoking Status: Tobacco use Status Tobacco use date assessed 04/05/24 04/05/24 11:09 Patient Tobacco Use Status Former Tobacco user 04/05/24 11:09 Tobacco use type Cigarette 04/05/24 11:09 e-Cigarette/Vaping Use Former Use 04/05/24 11:09 PHQ-9: PHQ-9 Score PHQ-9: Total score 0 04/05/24 11:31 Thrive Assessment: Date of Thrive Assessment Date Thrive assessed 04/05/24 04/05/24 11:09 Currently or been in a relationship where the following occur: No concerns reported Const General: alert; No acute distress Eyes Conjunctivae: conjunctivae normal Resp Auscultation: clear to auscultation bilaterally Cardio Rate: regular rate Rhythm: regular rhythm GI Inspection: Yes normal to inspection Extrem General: Yes normal to inspection and No edema Results AMB Hemoglobin A1c AMB Hemoglobin A1c 7.8 % Last Edit by Carol Garcia CMA on 04/05/24 11:31 Results Reviewed Results Reviewed: Laboratory Last Values Hgb A1c (Clinic) 7.8 % (4.0-6.0) H 04/05/24 11:09 Coding Level of Care Code Est Pt Level 4 (14074) Diagnoses Type 2 diabetes mellitus with hyperglycemia E11.65 Hypertriglyceridemia E78.1 Obesity E66.9 Hypertension I10 Constipation K59.00 Erectile dysfunction N52.9 Assessment & Plan Assessment & Plan (1) Type 2 diabetes mellitus with hyperglycemia: Comment: Eye 01/2024 Code(s): E11.65 - Type 2 diabetes mellitus with hyperglycemia Category: Medical Plan: Decrease the amount of carbohydrate intake, pasta, bread, rice and potatoes are all sugar and that is aside from all the sweet stuff, remember that fruits are good but they are Sweet also. Hemoglobin A1c goal of less than 6.5 patient on Ozempic and metformin (2) Hypertriglyceridemia: Code(s): E78.1 - Pure hyperglyceridemia Category: Medical Plan: Cholesterol plan on simvastatin 20 mg at bedtime (3) Obesity: Code(s): E66.9 - Obesity, unspecified Category: Medical Plan: Diet and exercise (4) Hypertension: Code(s): I10 - Essential (primary) hypertension Category: Medical Plan: Continue with blood pressure medication. Decrease salt intake and exercise on lisinopril hydrochlorothiazide. (5) Constipation: Code(s): K59.00 - Constipation, unspecified Category: Medical (6) Erectile dysfunction: Code(s): N52.9 - Male erectile dysfunction, unspecified Category: Medical Plan History of Present Illness The patient is a 43-year-old male presenting for a follow-up on chronic medical conditions, including uncontrolled diabetes mellitus, hypercholesterolemia, essential hypertension, and erectile dysfunction. The patient's diabetes was last evaluated with laboratory work in September 2023; his blood sugar was 153 mg/dL, and hemoglobin A1c was noted to be 10.5%. An elevated hemoglobin A1c goal of less than 6.5% has been set, and pharmacotherapy includes Ozempic and metformin. The patient's LDL cholesterol improved to 84 mg/dL, and triglycerides decreased to 146 mg/dL after treatment with simvastatin. Essential hypertension is managed with lisinopril and hydrochlorothiazide. Renal function remained stable, although slight proteinuria was noted. Prior eye evaluations were completed in January without significant findings. The patient reports a history of reduced sexual function, likely related to diabetes, causing concern. No noticeable gastrointestinal issues, except for occasional constipation, were reported, manageable with increased water intake and dietary adjustments. Physical Exam General: Cooperative, healthy appearing, comfortable, no acute distress and well developed Orientation: Patient oriented x3 Limitations: No limitations Head: Normal to inspection Ears: Hearing grossly normal bilaterally Nose: Normal external nose present Face and sinus: Normal facial exam Eyes: Appearance normal, both eyes and all related structures. Recent eye exam in January showed no problems. Neck: Normal visual inspection and Yes full ROM Respiratory: Normal respiratory effort and able to speak in complete sentences. Clear to auscultation bilaterally Cardiovascular: Regular rate and rhythm. Normal S1 and S2 GI: Normal to inspection. Soft to palpation and nontender. Reports normal bowel movements but takes longer than before. Skin: No rashes or lesions noted Neuro: Patient oriented x3 Extremities: Normal to inspection Plan Patient was informed and verbally consented to the use of an ambient scribe for clinic note documentation during this visit. 1. Hypercholesterolemia LDL levels have improved to 84 mg/dL, and triglycerides are at 146 mg/dL with simvastatin 20 mg at bedtime. The patient's cholesterol management plan continues with dietary modifications and exercise. Reinforced the importance of adherence to lipid-lowering therapy and periodic lipid panels for assessment. 2. Erectile Dysfunction Discussed the potential etiology related to diabetic neuropathy. Prescribed sildenafil (generic Viagra) for symptomatic treatment. Explained the medication's mechanism and administration, suggesting ingestion two hours before sexual activity, with expected duration of action around six hours. Plan to reassess efficacy and any contributing factors at a follow-up visit. 3. Uncontrolled Type 2 Diabetes Mellitus The patient is currently on metformin 500 mg twice daily and Ozempic 1 mg weekly for blood sugar management. His hemoglobin A1c remains elevated at 7.8%. I have advised increasing the semaglutide dose to better achieve glycemic control and continued the current metformin dose. Emphasized lifestyle modifications, including a diet rich in plant proteins, regular physical activity, and adequate hydration. Monitoring of blood glucose levels is encouraged. 4. Essential Hypertension Managed with lisinopril and hydrochlorothiazide combination 20-12.5 mg daily. Blood pressure readings remain stable. Continued monitoring and adherence to antihypertensive therapy are advised. Addressed the impact of lifestyle modifications and stress reduction. Orders: Orders AMB Hemoglobin A1c Today Z13.9 - Encounter for screening, unspecified Medications: New sennosides-docusate sodium 8.6-50 mg (Senna with Docusate Sodium) 2 tab-caps (2 x 8.6-50 mg) PO BEDTIME 60 tabs 3RF K59.00 - Constipation, unspecified sildenafil administer 30 minutes to 4 hours before activity 100 mg PO DAILY PRN 14 tabs 0RF sexual activity N52.9 - Male erectile dysfunction, unspecified Changed From semaglutide (Ozempic) 0.5 mg (0.736 mL) subcut QWEEK 3 mL 0RF E11.65 - Type 2 diabetes mellitus with hyperglycemia To semaglutide 1 mg (0.75 mL) subcut QWEEK 3 mL 1RF 4 weeks E11.65 - Type 2 diabetes mellitus with hyperglycemia
[2024-04-05 11:08] VITALS: BP 132/82; PULSE 87; O2SAT 98; BMI 39.1
--- OUTSIDE RECORDS SUMMARY | 2024-04-05 12:11 | XMS_ITS | Patient Health Record ---
Demographics Address [address] [place] [address] Mobile Email Address Preferred Language es Marital Status Congregational Affiliation Unknown Race Unknown Additional Race(s) Other Race Ethnic Group or Author Organization [facility] Address [address] [place] [address] Support Name Relationship Address Phone Lauren Cruz Emergency Contact [address] [place] [address] Jim Ross Guarantor Unknown [phone] Care Team Providers Care Fuel Cell Binder Name Role Phone Urbano Raines DO Primary Care Provider [place] Unavailable [phone] Allergies No Known Allergies Reason For Referral [...] Piroxicam 20 MG TAKE 1 CAPSULE BY [facility] EVERY DAY WITH FOOD FOR 30 [...] Problem Status W/U Status Risk Notes Problem [id number] Type 2 diabetes mellitus with polyneuropathy (E11.42) Active confirmed Plan Of Treatment Pending Test Test Name Order Date X ray : Foot, left 3V 02/22/2022 X ray : Foot, right 3V 02/22/2022 Insurance Providers Payer Name Payer Address Payer Phone Subscriber Number Group Number Insured Name Patient Relationship to Insured Coverage Start Date Coverage End Date [facility] [address] [place] [address] [phone] [id number] Jim Woo Self - patient is the insured Medical (General) History Medical History History ICD Code Hypertension type II diabetes Gall bladder problems Numbness Surgical History Surgery Date(Month/Year) carpal tunnel surgery
== END 2024-04-05 11:39 | disposition home or self-care (01) ==
PROVIDERS: PCP Internal Medicine; Visit Provider Internal Medicine
DX: E11.65 Type 2 diabetes mellitus with hyperglycemia (principal); E78.1 Pure hyperglyceridemia; E66.9 Obesity, unspecified; Z68.39 Body mass index [BMI] 39.0-39.9, adult; I10 Essential (primary) hypertension; K59.00 Constipation, unspecified; N52.9 Male erectile dysfunction, unspecified

== ENCOUNTER → 2024-04-05 11:02 | Outpatient (BNVA) | payer BC, SELFPAY | PROVIDERS: PCP Internal Medicine; Visit Provider Internal Medicine | DX: E11.65 Type 2 diabetes mellitus with hyperglycemia (principal); E78.1 Pure hyperglyceridemia; E66.9 Obesity, unspecified; Z68.39 Body mass index [BMI] 39.0-39.9, adult; I10 Essential (primary) hypertension; K59.00 Constipation, unspecified; N52.9 Male erectile dysfunction, unspecified; Z79.84 Long term (current) use of oral hypoglycemic drugs; Z79.899 Other long term (current) drug therapy | CPT/HCPCS: 83036; 96127 ==

== ENCOUNTER 2024-07-12 10:58 | Outpatient (AMB) | payer BC, SELFPAY ==
[2024-07-12 11:10] VITALS: BP 136/92; PULSE 92; O2SAT 99; BMI 39.0
--- NOTE | 2024-07-12 11:10 | A.OFFPC_ITS ---
Vital Signs 07/12/24 11:10 Height 5 ft 6 in Weight 241 lb 8 oz BMI 39.0 BP 136/92 H Blood Pressure Location Lt brachial Position Sitting Pulse 92 Pulse Source Pulse Oximeter Pulse Oximetry (%) 99 Oxygen Delivery Method Room Air Intake Visit Reasons: DM, ED Accompanied by: Self / Same As Patient Allergies No Known Allergies [No Known Allergies*] Allergy (Verified 07/12/24 11:10) Medication List - Last Reconciled 07/12/24 by Jorge Clark MD gabapentin 100 mg PO BEDTIME lisinopril-hydrochlorothiazide 20-12.5 mg 1 tab PO BID metformin 500 mg PO BID semaglutide 2 mg (0.75 mL) subcut QWEEK 4 weeks sennosides-docusate sodium 8.6-50 mg (Senna with Docusate Sodium) 2 tab-caps (2 x 8.6-50 mg) PO BEDTIME sildenafil 100 mg PO DAILY PRN simvastatin 20 mg PO BEDTIME Tobacco use date assessed: 07/12/24 Dental Screening Dental Screen Date: 04/05/24 Did you have a dental visit in the last 12 months?: No Did you have a dental problem in the last 6 months where you did not have access to dental care?: No Was dental information given to patient?: Patient has dentist [facility] Surgical History History of carpal tunnel release of both wrists Family History Mother Diabetes Father Hypertension Sister No problems noted. Sister Lupus Thyroid condition Sister Hypertension Sister No problems noted. Son No problems noted. Son No problems noted. Son No problems noted. Son No problems noted. Son No problems noted. Son No problems noted. Daughter No problems noted. Social History Housing: Apartment Alcohol intake: current Comment: 3x a week- 2-3 beers Patient Tobacco Use Status: Former Tobacco user Tobacco use type: Cigarette Years Smoked: quit 2013 e-Cigarette/Vaping Use: Former Use Second Hand Smoke Exposure: Yes service: No Current occupational status: employed Current occupation: Merchandizer at [employer] Current occupational exposures/hazards: No Cognitive needs: No Hearing needs: No Vision needs: No Questionnaire PHQ-9 Over the last 2 weeks, how often have you been bothered by any of the following problems? 1. Little interest or pleasure in doing things: several days 2. Feeling down, depressed, or hopeless: several days 3. Trouble falling or staying asleep, or sleeping too much: several days 4. Feeling tired or having little energy: several days 5. Poor appetite or overeating: several days 6. Feeling bad about yourself - or that you are a failure or have let yourself or your family down: several days 7. Trouble concentrating on things, such as reading the newspaper or watching television: not at all 8. Moving or speaking so slowly that other people could have noticed. Or the opposite - being so fidgety or restless that you have been moving around a lot more than usual: not at all 9. Thoughts that you would be better off or of hurting yourself in some way: not at all Total score: 6 Depression Screening Interpretation: Positive Depression Screening Done: Yes Source: Developed by Drs. Elpidio Mcrae, Eli Sykes, Bentley Rodas and colleagues, with an educational kosta from [employer]. Thrive Questionnaire Date Thrive assessed: 07/06/24 I am a: Patient What is your living situation today?: I have a steady place to live Within the past 12 months, did the food you bought not last and you didn't have the money to get more?: Never true Within the past 12 months, did you worry whether your food would run out before you got money to buy more?: Never true Do you have trouble paying for medicines?: No Do you have trouble getting transportation to medical appointments?: No Do you have trouble paying your heating and electricity bill?: No Do you have trouble taking care of your child, family member or friend?: No Do you have trouble with day-to-day activities such as bathing, preparing meals, shopping, managing finances, etc.?: No Are you currently unemployed and looking for a job?: No Are you interested in more education?: No Please select the resources that you would like help with: None Currently or been in a relationship where the following occur: No concerns reported THRIVE Score: 0 AUDIT C Alcohol Use Questionnaire (AUDIT-C) 1. How often do you have a drink containing alcohol?: 2-3 times a week 2. How many drinks containing alcohol do you have on a typical day when you are drinking?: 1 or 2 3. How often do you have six or more drinks on one occasion?: Never Total Score: 3 DALY-7 AMB Questionnaire DALY-7 Date DALY - 7 assessed: 07/12/24 Feeling nervous, anxious, or on edge: 0 = Not at all Not being able to stop or control worryin = Not at all Worrying too much about different things: 0 = Not at all Trouble relaxin = More than half the days Being so restless that it is hard to sit still: 0 = Not at all Becoming easily annoyed or irritable: 1 = Several days Feeling afraid as if something awful might happen: 0 = Not at all Total DALY-7 score (0-4 normal; 5-9 mild; 10-14 moderate; 15-21 severe): 3 Source: Developed by Drs. Elpidio Mcrae, Eli Sykes, Bentley Rodas and colleagues, with an educational kosta from [employer]. Physical exam (Primary Care) Vital Signs: Last Vital Signs Pulse 92 07/12/24 11:10 BP 136/92 H 07/12/24 11:10 Pulse Ox 99 07/12/24 11:10 Oxygen Delivery Method Room Air 07/12/24 11:10 BMI result Body Mass Index 39.0 Tobacco/Smoking Status: Tobacco use Status Tobacco use date assessed 07/12/24 07/12/24 11:17 Patient Tobacco Use Status Former Tobacco user 07/12/24 11:11 Tobacco use type Cigarette 07/12/24 11:11 e-Cigarette/Vaping Use Former Use 07/12/24 11:11 PHQ-9: PHQ-9 Score PHQ-9: Total score 6 07/12/24 11:36 Depression Screening Interpretation: Positive Thrive Assessment: Date of Thrive Assessment Date Thrive assessed 07/06/24 07/12/24 11:11 Currently or been in a relationship where the following occur: No concerns reported Const General: alert; No acute distress Eyes Conjunctivae: conjunctivae normal Resp Auscultation: clear to auscultation bilaterally Cardio Rate: regular rate Rhythm: regular rhythm GI Inspection: Yes normal to inspection Extrem General: Yes normal to inspection and No edema Results AMB Hemoglobin A1c AMB Hemoglobin A1c 7.1 % Last Edit by Carol Garcia CMA on 07/12/24 11 :25 Results Reviewed Results Reviewed: Laboratory Last Values Hgb A1c (Clinic) 7.1 % (4.0-6.0) H 07/12/24 11:25 Coding Level of Care Code Est Pt Level 4 (22843) Diagnoses Type 2 diabetes mellitus with hyperglycemia E11.65 Obesity E66.9 Hypertension I10 Hepatic steatosis K76.0 Hypercholesterolemia E78.00 Erectile dysfunction N52.9 Assessment & Plan Assessment & Plan (1) Type 2 diabetes mellitus with hyperglycemia: Comment: Eye 01/2024 Code(s): E11.65 - Type 2 diabetes mellitus with hyperglycemia Category: Medical Plan: Decrease the amount of carbohydrate intake, pasta, bread, rice and potatoes are all sugar and that is aside from all the sweet stuff, remember that fruits are good but they are Sweet also. Hemoglobin A1c goal of less than 6.5 patient is on metformin 500 mg twice a day semaglutide 1 mg once a week (2) Obesity: Code(s): E66.9 - Obesity, unspecified Category: Medical Plan: diet and exercise (3) Hypertension: Code(s): I10 - Essential (primary) hypertension Category: Medical Plan: Continue with blood pressure medication. Decrease salt intake and exercise on lisinopril hydrochlorothiazide 20/12.5 mg once a day (4) Hepatic steatosis: Comment: 2019 Code(s): K76.0 - Fatty (change of) liver, not elsewhere classified Category: Medical Plan: low-fat diet and exercise (5) Hypercholesterolemia: Code(s): E78.00 - Pure hypercholesterolemia, unspecified Category: Medical Plan: Avoid fried foods, chicken skin, eggs, butter margarine, pastries and meat. Be it pork or beef they have a lot of cholesterol LDL goal of less than 100 and triglyceride of less than 150. On simvastatin 20 mg once a day (6) Erectile dysfunction: Code(s): N52.9 - Male erectile dysfunction, unspecified Category: Medical Plan History of Present Illness The patient is a 43-year-old male presenting with a follow-up visit for the ongoing management of his chronic conditions, specifically Type 2 Diabetes Mellitus, Hypercholesterolemia, Essential Hypertension, and Fatty Liver Disease. His diabetes management includes metformin and semaglutide, with a notable change in A1c from 7.8% in March 2024 to 7.1% as of this visit, although the goal remains below 6.5%. His previous blood work illustrated normal blood count and electrolytes. The hypercholesterolemia has been effectively managed with simvastatin, achieving an LDL level of 84 mg/dL, below the target threshold. His essential hypertension requires adjustment, as current treatment does not meet the target blood pressure of 120/80 mmHg. There is a history of fatty liver disease from 2019, and recent liver function tests have shown elevated enzymes. The patient maintains a low-fat diet and engages in exercise but faces challenges related to medication affordability and reports of sexual dysfunction. Standard screening and preventive care measures were also discussed during this visit. Health Maintenance - Patient's cholesterol and blood pressure targets were reviewed and are generally well managed with current medications. - Vaccinations: Up to date with pneumonia vaccine; needs tetanus booster. - Regular eye checks are maintained with scheduled appointments. - Weight management discussed, with adjustment of semaglutide dose due to insufficient weight loss. Social History - Resides in [place], [place]. - Engages in modest exercise as part of lifestyle management. - Adheres to a low-fat dietary plan. - Has expressed financial constraints impacting medication procurement. - Reports upcoming ophthalmological consultation in [place] for regular follow-up. Review of Systems - Constitutional: Reports no issues with bowel movements, urination within normal. - Endocrine: Reports diabetes mellitus management; A1c at 7.1%, aiming for improvement. - Cardiovascular: Denies experiencing decreased blood pressure. - Musculoskeletal: Negative for recent weight loss. - Genitourinary: Reports sexual dysfunction issues. Physical Exam Results - Labs: December 2023: Blood sugar 153 mg/dL, Normal electrolytes, Elevated liver enzymes. - Recent Hemoglobin A1c: 7.1%. - LDL cholesterol level: 84 mg/dL. Plan 1. 5%. For Hypercholesterolemia, simvastatin at 20 mg daily is maintained as the patient's LDL level is at target. Essential Hypertension management involves increasing lisinopril-hydrochlorothiazide administration to twice daily, with blood pressure monitoring for readings below 110 mmHg. Fatty Liver Disease is managed through dietary advice and regular liver function monitoring. The patient will have testosterone levels checked during the next lab assessment, assisting in addressing reported sexual dysfunction. Follow-up is recommended to evaluate effectiveness and make further adjustments as needed.: Patient was informed and verbally consented to the use of an ambient scribe for clinic note documentation during this visit. Discussion Notes During this visit, I reviewed the patient's ongoing management strategies for Diabetes Mellitus, Hypercholesterolemia, Essential Hypertension, and Fatty Liver Disease. For diabetes, we discussed increasing semaglutide for better weight control and reaching an A1c target below 6.5%. The need for maintaining simvastatin therapy was confirmed due to satisfying LDL levels. Blood pressure management requires an increased frequency of antihypertensive dosage for optimal control. I educated the patient about monitoring potential symptoms like dizziness when blood pressure approaches lower levels. We also addressed concerns regarding medication affordability and included testosterone testing in the upcoming lab work to evaluate sexual health concerns. Plans for follow-up were set to ensure adaptations in patient care are effective and efficient. Patient Instructions - Continue with current diabetes medications, increasing semaglutide dose. - Monitor blood pressure; inform if it falls below 110 mmHg. - Maintain simvastatin usage for cholesterol management. - Follow dietary recommendations for controlling hypertension and liver health. - Conduct blood work in September including testosterone levels. - Attend regular follow-up appointments to assess health progress. - Report any new symptoms including dizziness or fatigue. - Follow through with scheduled appointments for eye care and foot checkup. Orders: Orders Comprehensive Met. Panel 3 Months E11.65 - Type 2 diabetes mellitus with hyperglycemia Free T4 (Free Thyroxine) 3 Months E11.65 - Type 2 diabetes mellitus with hyperglycemia Lipid Panel 3 Months E11.65 - Type 2 diabetes mellitus with hyperglycemia, E78.00 - Pure hypercholesterolemia, unspecified Vitamin B12 and Folate 3 Months E11.65 - Type 2 diabetes mellitus with hyperglycemia Hemoglobin A1c 3 Months E11.65 - Type 2 diabetes mellitus with hyperglycemia Testosterone, Total 3 Months N52.9 - Male erectile dysfunction, unspecified Complete Blood Count Auto Diff 3 Months E11.65 - Type 2 diabetes mellitus with hyperglycemia Thyroid Stimulating Hormone 3 Months E11.65 - Type 2 diabetes mellitus with hyperglycemia AMB Hemoglobin A1c Today Z13.9 - Encounter for screening, unspecified Medications: New tadalafil administer approximately 30min before sexual activity; do not use more than 1 dose per 24hrs 20 mg PO Q OTHER DAY PRN 10 tabs 0RF sexual activity N52.9 - Male erectile dysfunction, unspecified tadalafil administer approximately 30min before sexual activity; do not use more than 1 dose per 24hrs 20 mg PO Q OTHER DAY PRN 10 tabs 0RF sexual activity N52.9 - Male erectile dysfunction, unspecified Refilled lisinopril-hydrochlorothiazide 20-12.5 mg 1 tab PO BID 180 tabs 0RF semaglutide 2 mg (0.75 mL) subcut QWEEK 3 mL 1RF 4 weeks E11.65 - Type 2 diabetes mellitus with hyperglycemia Discontinued sildenafil administer 30 minutes to 4 hours before activity Discontinued Reason: Doctor's Order 100 mg PO DAILY PRN 14 tabs 0RF sexual activity N52.9 - Male erectile dysfunction, unspecified
--- OUTSIDE RECORDS SUMMARY | 2024-07-12 11:51 | XMS_ITS | Patient Health Record ---
Demographics Address [address] [place] [address] Mobile Email Address Preferred Language es Marital Status [employer] Affiliation Unknown Race Unknown Additional Race(s) Other Race Ethnic Group or Author Organization [facility] Address [address] [place] [address] Support Name Relationship Address Phone Lauren Cruz Emergency Contact [address] [place] [address] Jim Ross Guarantor Unknown [phone] Care Team Providers Care Munitions Worker Name Role Phone Urbano Raines DO Primary Care Provider [place] Unavailable [phone] Allergies No Known Allergies Reason For Referral [...] Piroxicam 20 MG TAKE 1 CAPSULE BY [facility] EVERY DAY WITH FOOD FOR 30 DAYS [...] Problem Status W/U Status Risk Notes Problem [id number] Type 2 diabetes mellitus with polyneuropathy (E11.42) Active confirmed Plan Of Treatment Pending Test Test Name Order Date X ray : Foot, left 3V 02/22/2022 X ray : Foot, right 3V 02/22/2022 Insurance Providers Payer Name Payer Address Payer Phone Subscriber Number Group Number Insured Name Patient Relationship to Insured Coverage Start Date Coverage End Date [facility] [address] [place] [address] [id number] Jim Woo Self - patient is the insured Medical (General) History Medical History History ICD Code Hypertension type II diabetes Gall bladder problems Numbness Surgical History Surgery Date(Month/Year) carpal tunnel surgery
== END 2024-07-12 11:40 | disposition home or self-care (01) ==
LOC: HO.HMCH 10:59
PROVIDERS: PCP Internal Medicine; Visit Provider Internal Medicine
DX: E11.65 Type 2 diabetes mellitus with hyperglycemia (principal); I10 Essential (primary) hypertension; E66.9 Obesity, unspecified; Z68.39 Body mass index [BMI] 39.0-39.9, adult; K76.0 Fatty (change of) liver, not elsewhere classified; E78.00 Pure hypercholesterolemia, unspecified; N52.9 Male erectile dysfunction, unspecified

== ENCOUNTER → 2024-07-12 10:58 | Outpatient (BNVA) | payer BC, SELFPAY | PROVIDERS: PCP Internal Medicine; Visit Provider Internal Medicine | DX: E11.65 Type 2 diabetes mellitus with hyperglycemia (principal); E66.9 Obesity, unspecified; Z68.39 Body mass index [BMI] 39.0-39.9, adult; I10 Essential (primary) hypertension; K76.0 Fatty (change of) liver, not elsewhere classified; E78.00 Pure hypercholesterolemia, unspecified; N52.9 Male erectile dysfunction, unspecified; Z79.84 Long term (current) use of oral hypoglycemic drugs; Z79.899 Other long term (current) drug therapy; Z13.30 Encounter for screening examination for mental health and behavioral disorders, unspecified; Z13.31 Encounter for screening for depression | CPT/HCPCS: 83036; 96127 ==

== ENCOUNTER 2024-10-05 07:29 | Outpatient (REF) | payer BC, SELFPAY ==
[2024-10-05 08:04] LABS: MANUAL DIFF FLAG NO
[2024-10-05 08:50] LABS: Hematocrit 42.0 % (42.0-52.0); Hemoglobin 14.7 g/dl (14.0-18.0); Imm Gran Abs Auto 0.05 X10*3/uL (0.00-0.03); Imm Gran Pct Auto 0.7 % (0.0-0.4); Lymphocytes Absolute Auto 2.6 X10*3/uL (1.2-4.9); Mean Corpuscular HGB Conc 35.0 g/dl (31.0-36.0); Mean Corpuscular Hemoglobin 30.4 pg (27.0-33.0); Mean Corpuscular Volume 86.8 fL (80.0-98.0); NRBC Abs Auto 0.000 X10*3/uL (0.0-0.012); NRBC Pct Auto 0.0 /100WBC (0.0-0.2); Platelet Count 279 X10*3/uL (160-400); Red Blood Count 4.84 X10*6/uL (4.60-5.80); White Blood Count 7.2 X10*3/uL (4.8-10.8)
[2024-10-05 08:56] LABS: Hemoglobin A1C 204.2423 umol/L; Total Hemoglobin (HGBA1C) 3895.8545 umol/L
[2024-10-05 09:33] LABS: Alanine Aminotransferase 54 U/L (0-40); Albumin Level 4.6 g/dL (3.5-5.0); Alkaline Phosphatase 52 U/L (39-117); Anion Gap 12 (12-20); Aspartate Amino Transferase 40 U/L (5-37); Blood Urea Nitrogen 17 mg/dL (9-16); Calcium 9.4 mg/dL (8.4-10.2); Carbon Dioxide 22 mmol/L (22-29); Chloride 108 mmol/L (96-108); Cholesterol 216 mg/dL (<200); Estimated Glomerular Filt Rate > 60; HDL Cholesterol 33 mg/dL (>40); Potassium 4.2 mmol/L (3.3-5.1); Sodium 138 mmol/L (135-145); Total Protein 7.9 g/dL (6.5-8.0); Triglycerides 155 mg/dL (<150)
[2024-10-05 09:38] LABS: Free T4 (Free Thyroxine) 1.11 ng/dL (0.71-1.85); Thyroid Stimulating Hormone 0.81 uIU/mL (0.32-4.0)
[2024-10-05 09:53] LABS: Folate 11.7 ng/mL (> or = 4.0); Vitamin B12 495 pg/mL (200-900)
== END 2024-10-05 07:30 | disposition home or self-care (01) ==
LOC: HO.LAB 07:29
PROVIDERS: PCP Internal Medicine; Visit Provider Internal Medicine
DX: E78.00 Pure hypercholesterolemia, unspecified (principal); E11.65 Type 2 diabetes mellitus with hyperglycemia; N52.9 Male erectile dysfunction, unspecified
CPT/HCPCS: 36415; 80053; 80061; 82570; 82607; 82746; 83036; 84403; 84439; 84443; 85025

== ENCOUNTER 2024-11-08 13:13 | Outpatient (AMB) | payer BC, SELFPAY ==
[2024-11-08 13:16] VITALS: BP 124/90; PULSE 93; TEMP 36.3; O2SAT 99; BMI 39.2
--- NOTE | 2024-11-08 13:16 | MHC.PC.OV ---
Vital Signs 11/08/24 13:16 Height 5 ft 6 in Weight 243 lb 2 oz BMI 39.2 BP 124/90 H Blood Pressure Location Lt brachial Position Sitting Pulse 93 Pulse Source Pulse Oximeter Temp 97.3 F Temp Source Temporal Artery Scan Pulse Oximetry (%) 99 Oxygen Delivery Method Room Air Intake Visit Reasons: annual exam Allergies No Known Allergies (No Known Allergies*) Allergy (Verified 11/08/24 13:19) Medication List - Last Reconciled 11/08/24 by Jorge Clark MD amlodipine 2.5 mg PO DAILY gabapentin 100 mg PO BEDTIME lisinopril-hydrochlorothiazide 20-12.5 mg 1 tab PO BID metformin 500 mg PO BID semaglutide 2 mg (0.75 mL) subcut QWEEK 4 weeks sennosides-docusate sodium 8.6-50 mg (Senna with Docusate Sodium) 2 tab-caps (2 x 8.6-50 mg) PO BEDTIME simvastatin 20 mg PO BEDTIME tadalafil 20 mg PO Q OTHER DAY PRN Tobacco use date assessed: 11/08/24 Dental Screening Dental Screen Date: 11/08/24 Did you have a dental visit in the last 12 months?: No Did you have a dental problem in the last 6 months where you did not have access to dental care?: No Was dental information given to patient?: Patient has dentist [facility] Surgical History History of carpal tunnel release of both wrists Family History Mother Diabetes Father Hypertension Sister No problems noted. Sister Lupus Thyroid condition Sister Hypertension Sister No problems noted. Son No problems noted. Son No problems noted. Son No problems noted. Son No problems noted. Son No problems noted. Son No problems noted. Daughter No problems noted. Social History (Updated 11/08/24 @ 13:45 by Jorge Clark MD) Housing: Apartment Alcohol intake: current Comment: 2x a week-6 pCK Patient Tobacco Use Status: Former Tobacco user Tobacco use type: Cigarette Years Smoked: quit 2013 e-Cigarette/Vaping Use: Former Use Second Hand Smoke Exposure: Yes service: No Current occupational status: employed Current occupation: Merchandizer at [employer] Current occupational exposures/hazards: No Cognitive needs: No Hearing needs: No Vision needs: No Questionnaire PHQ-9 Over the last 2 weeks, how often have you been bothered by any of the following problems? 1. Little interest or pleasure in doing things: several days 2. Feeling down, depressed, or hopeless: several days 3. Trouble falling or staying asleep, or sleeping too much: several days 4. Feeling tired or having little energy: several days 5. Poor appetite or overeating: several days 6. Feeling bad about yourself - or that you are a failure or have let yourself or your family down: several days 7. Trouble concentrating on things, such as reading the newspaper or watching television: not at all 8. Moving or speaking so slowly that other people could have noticed. Or the opposite - being so fidgety or restless that you have been moving around a lot more than usual: not at all 9. Thoughts that you would be better off or of hurting yourself in some way: not at all Total score: 6 Depression Screening Interpretation: Positive Depression Screening Done: Yes Source: Developed by Drs. Elpidio Mcrae, Eli Sykes, Bentley Rodas and colleagues, with an educational kosta from [employer]. Thrive Questionnaire Date Thrive assessed: 07/06/24 I am a: Patient What is your living situation today?: I have a steady place to live Within the past 12 months, did the food you bought not last and you didn't have the money to get more?: Never true Within the past 12 months, did you worry whether your food would run out before you got money to buy more?: Never true Do you have trouble paying for medicines?: No Do you have trouble getting transportation to medical appointments?: No Do you have trouble paying your heating and electricity bill?: No Do you have trouble taking care of your child, family member or friend?: No Do you have trouble with day-to-day activities such as bathing, preparing meals, shopping, managing finances, etc.?: No Are you currently unemployed and looking for a job?: No Are you interested in more education?: No Please select the resources that you would like help with: None Currently or been in a relationship where the following occur: No concerns reported THRIVE Score: 0 AUDIT C Alcohol Use Questionnaire (AUDIT-C) 1. How often do you have a drink containing alcohol?: 2-3 times a week 2. How many drinks containing alcohol do you have on a typical day when you are drinking?: 1 or 2 3. How often do you have six or more drinks on one occasion?: Never Total Score: 3 DALY-7 AMB Questionnaire DALY-7 Date DALY - 7 assessed: 07/12/24 Feeling nervous, anxious, or on edge: 0 = Not at all Not being able to stop or control worryin = Not at all Worrying too much about different things: 0 = Not at all Trouble relaxin = More than half the days Being so restless that it is hard to sit still: 0 = Not at all Becoming easily annoyed or irritable: 1 = Several days Feeling afraid as if something awful might happen: 0 = Not at all Total DALY-7 score (0-4 normal; 5-9 mild; 10-14 moderate; 15-21 severe): 3 Source: Developed by Drs. Elpidio Mcrae, Eli Sykes, Bentley Rodas and colleagues, with an educational kosta from [employer]. Review of Systems Const Denies poor appetite and Denies weakness Eyes Denies no additional complaints ENT Reports Normal hearing present, Denies dizziness, Denies nasal congestion, Denies tinnitus and Denies sore throat Card Denies chest pain, Denies syncope, Denies rapid heart rate and Denies dyspnea Resp Denies cough and Denies dyspnea GI Denies change in stool character, Reports constipation, Denies diarrhea, Denies nausea and Denies vomiting Denies dysuria and Denies urinary frequency Neuro Reports Normal hearing present, Denies confusion, Denies dizziness, Denies syncope and Denies weakness Psych Denies confusion Physical exam (Primary Care) Vital Signs: Last Vital Signs Temp 97.3 F 11/08/24 13:16 Pulse 93 11/08/24 13:16 BP 124/90 H 11/08/24 13:16 Pulse Ox 99 11/08/24 13:16 Oxygen Delivery Method Room Air 11/08/24 13:16 BMI result Body Mass Index 39.2 Tobacco/Smoking Status: Tobacco use Status Tobacco use date assessed 11/08/24 11/08/24 13:20 Patient Tobacco Use Status Former Tobacco user 11/08/24 13:45 Tobacco use type Cigarette 11/08/24 13:45 e-Cigarette/Vaping Use Former Use 11/08/24 13:45 PHQ-9: PHQ-9 Score PHQ-9: Total score 6 11/08/24 13:39 Depression Screening Interpretation: Positive Thrive Assessment: Date of Thrive Assessment Date Thrive assessed 07/06/24 11/08/24 13:20 Currently or been in a relationship where the following occur: No concerns reported Const General: No confusion Orientation/consciousness: No confusion HENMT Head: Yes normocephalic Ears: external ears normal and TM's normal bilaterally Face and sinus: Yes normal facial exam Mouth: moist mucous membranes Throat: Yes tonsils normal Eyes Conjunctivae: conjunctivae normal Pupils: Equal, round and reactive pupils present and Pupil accommodation reflex normal Direct Ophthalmoscopy: normal light reflex Neck Neck: No lymphadenopathy Thyroid: Thyroid normal Chest Chest palpation & inspection: normal inspection of the chest Resp Effort & Inspection: normal respiratory effort and no audible wheezes Auscultation: clear to auscultation bilaterally, no crackles, no wheezes and lung sounds not diminished Cardio Rate: regular rate Rhythm: regular rhythm Peripheral pulses: radial pulses present and dorsalis pedis present GI Other: RECTAL VISUAL NEGATIVE, Palpation (GI): no masses Auscultation: normal bowel sounds and normoactive bowel sounds Skin General skin exam: no rashes or lesions noted Rashes: no rashes Neuro General: No confusion Cranial nerves: Yes Equal, round and reactive pupils present and Yes Normal hearing present Cognition (Neuro): normal cognition Gait exam (Neuro): Normal gait present Motor exam (neuro): 5/5 motor strength present throughout Deep tendon reflexes (DTR's): Right brachioradialis reflex intensity grade: 2+, Left brachioradialis reflex intensity grade: 2+, Right patellar reflex intensity grade: 2+ and Left patellar reflex intensity grade: 2+ Extrem General: No edema Coding Level of Care Code Est Pt Prev Care 40-64y(26886) Diagnoses Annual physical exam Z00.00 Type 2 diabetes mellitus with hyperglycemia E11.65 Hypertension I10 Hypercholesterolemia E78.00 Obesity E66.9 Hepatic steatosis K76.0 Hypogonadism in male E29.1 Assessment & Plan Assessment & Plan (1) Annual physical exam: Code(s): Z00.00 - Encounter for general adult medical examination without abnormal findings Category: Medical Plan: Patient is advised to eat healthy, keep well hydrated, keep active and have adequate sleep. (2) Type 2 diabetes mellitus with hyperglycemia: Comment: Eye 01/2024 Code(s): E11.65 - Type 2 diabetes mellitus with hyperglycemia Category: Medical Plan: Decrease the amount of carbohydrate intake, pasta, bread, rice and potatoes are all sugar and that is aside from all the sweet stuff, remember that fruits are good but they are Sweet also. Hemoglobin A1c goal of less than 6.5. Patient on metformin 500 mg twice a day semaglutide once a week (3) Hypertension: Code(s): I10 - Essential (primary) hypertension Category: Medical Plan: Continue with blood pressure medication. Decrease salt intake and exercise on lisinopril hydrochlorothiazide 20/12.5 mg once a day (4) Hypercholesterolemia: Code(s): E78.00 - Pure hypercholesterolemia, unspecified Category: Medical Plan: Avoid fried foods, chicken skin, eggs, butter margarine, pastries and meat. Be it pork or beef they have a lot of cholesterol LDL goal of less than 100 and triglyceride of less than 150 on simvastatin 20 mg once a day (5) Obesity: Code(s): E66.9 - Obesity, unspecified Category: Medical Plan: Diet and exercise (6) Hepatic steatosis: Comment: 2019 Code(s): K76.0 - Fatty (change of) liver, not elsewhere classified Category: Medical Plan: Low-fat diet and exercise (7) Hypogonadism in male: Code(s): E29.1 - Testicular hypofunction Category: Medical Plan: Discussed with the patient the testosterone and option of referral to Urology Plan History of Present Illness The patient is a 43-year-old male presenting for an annual physical examination. The patient has a history of obesity, which has been a persistent issue. Despite being on Ozempic, the patient reports no significant weight loss, maintaining a weight of approximately 247 pounds. The patient has been diagnosed with diabetes mellitus, with a hemoglobin A1c of 6.9%. The patient is currently on metformin and semaglutide for diabetes management. The blood sugar level was recorded at 110 mg/dL during the last check. The patient has hypercholesterolemia, with an LDL cholesterol level of 152 mg/dL. The patient is on simvastatin for cholesterol management. The patient has a history of hypertension, with recent blood pressure readings around 150/90 mmHg. The patient is on lisinopril and hydrochlorothiazide for blood pressure control. The patient has hepatic steatosis, which is being managed with dietary modifications. The patient reports hypogonadism, with a testosterone level of 267 ng/dL. The patient is considering a referral to urology for further management. Health Maintenance - Annual physical examination conducted - Discussion on dietary modifications for hepatic steatosis - Recommendation for flu vaccination in November - Discussion on the importance of maintaining blood pressure, cholesterol, and blood sugar levels within target ranges Social History - Alcohol consumption: Drinks alcohol occasionally, typically on weekends, consuming more than three drinks at a time - Smoking: Denies smoking cigarettes or using recreational drugs - Exercise: Reports engaging in some physical activity but no significant weight loss observed Review of Systems - General: Denies fever, dizziness, or nausea - Cardiovascular: Denies chest pain or heaviness - Respiratory: Denies shortness of breath or cough - Gastrointestinal: Reports bowel movements are normalizing, denies heartburn - Genitourinary: Reports nocturia once per night, denies dysuria - Neurological: Reports numbness in feet, denies headaches or balance issues Physical Exam General: Cooperative, healthy appearing, comfortable, no acute distress and well developed Orientation: Patient oriented x3 Limitations: No limitations Head: Normal to inspection Ears: Hearing grossly normal bilaterally Nose: Normal external nose present Face and sinus: Normal facial exam Eyes: Appearance normal, both eyes and all related structures Neck: Normal visual inspection and Yes full ROM Respiratory: Normal respiratory effort and able to speak in complete sentences. Clear to auscultation bilaterally Cardiovascular: Regular rate and rhythm. Normal S1 and S2 GI: Normal to inspection. Soft to palpation and nontender Skin: No rashes or lesions noted Neuro: Patient oriented x3 Extremities: Normal to inspection Results - Labs: Hemoglobin A1c 6.9%, LDL cholesterol 152 mg/dL, testosterone 267 ng/dL - Urinalysis: Proteinuria present Plan Patient was informed and verbally consented to the use of an ambient scribe for clinic note documentation during this visit. 1. Obesity The patient is advised to continue with dietary modifications and exercise to manage obesity. A switch from Ozempic to Mounjaro is considered to aid in weight reduction, pending insurance approval. 2. Diabetes Mellitus The patient's diabetes management includes metformin and semaglutide, with a target hemoglobin A1c of less than 6.5%. Regular monitoring of blood glucose levels is recommended. 3. Hypercholesterolemia The patient is on simvastatin with a goal to reduce LDL cholesterol to less than 100 mg/dL. A follow-up lipid panel is planned in three months to assess the effectiveness of the treatment. 4. Hypertension The patient is on lisinopril and hydrochlorothiazide, with an additional antihypertensive medication added to better control blood pressure. Blood pressure monitoring is advised to ensure readings remain below 140/90 mmHg. 5. Hepatic Steatosis Management includes dietary modifications aimed at weight reduction to improve liver function. 6. Hypogonadism The patient is considering a referral to urology for testosterone replacement therapy. Discussion Notes During the visit, we discussed the management of the patient's diabetes, hypertension, hypercholesterolemia, and obesity. I explained the importance of maintaining target levels for blood pressure, cholesterol, and blood glucose to prevent complications. We also discussed the potential switch from Ozempic to Mounjaro to aid in weight loss, pending insurance approval. The patient was informed about the option of testosterone replacement therapy for hypogonadism and agreed to a referral to urology. Follow-up blood work is planned in three months to monitor progress. Patient Instructions - Continue with dietary modifications and regular exercise. - Monitor blood pressure regularly and report any significant changes. - Take medications as prescribed, including metformin, semaglutide, lisinopril, hydrochlorothiazide, and simvastatin. - Schedule follow-up blood work in three months. - Consider referral to urology for testosterone replacement therapy. - Get a flu shot in November. Orders: Orders Hemoglobin A1c 3 Months E11.65 - Type 2 diabetes mellitus with hyperglycemia Lipid Panel 3 Months E11.65 - Type 2 diabetes mellitus with hyperglycemia, E78.00 - Pure hypercholesterolemia, unspecified Comprehensive Met. Panel 3 Months E11.65 - Type 2 diabetes mellitus with hyperglycemia Complete Blood Count Auto Diff 3 Months E11.65 - Type 2 diabetes mellitus with hyperglycemia Free T4 (Free Thyroxine) 3 Months E11.65 - Type 2 diabetes mellitus with hyperglycemia Thyroid Stimulating Hormone 3 Months E11.65 - Type 2 diabetes mellitus with hyperglycemia Referrals Urology Referral E29.1 - Testicular hypofunction Medications: New tirzepatide (Mounjaro) 7.5 mg (0.5 mL) subcut QWEEK 2 mL 0RF E29.1 - Testicular hypofunction amlodipine 2.5 mg PO DAILY 30 tabs 3RF I10 - Essential (primary) hypertension sildenafil (Viagra) administer 30 minutes to 4 hours before activity 100 mg PO DAILY PRN 10 tabs 3RF sexual activity E29.1 - Testicular hypofunction tirzepatide (Mounjaro) 7.5 mg (0.5 mL) subcut QWEEK 2 mL 0RF E29.1 - Testicular hypofunction amlodipine 2.5 mg PO DAILY 30 tabs 3RF I10 - Essential (primary) hypertension Discontinued tadalafil administer approximately 30min before sexual activity; do not use more than 1 dose per 24hrs Discontinued Reason: Entered in error 20 mg PO Q OTHER DAY PRN 10 tabs 0RF sexual activity N52.9 - Male erectile dysfunction, unspecified On Hold semaglutide Hold Comment: Doctor's Order 2 mg (0.75 mL) subcut QWEEK 4 weeks 3 mL 1RF E11.65 - Type 2 diabetes mellitus with hyperglycemia
--- OUTSIDE RECORDS SUMMARY | 2024-11-08 14:32 | XMS_ITS | Clinical Summary ---
Author Organization [facility] Address [address] [place] [phone] Phone Care Team Providers Care [employer] Name Role Phone Urbano Raines DO Primary Care Provider [phone] Allergies No known active allergies Medications meloxicam (MOBIC) 15 mg tablet Take 1 tablet (15 mg total) by mouth 1 (one) time each day. 30 tablet 1 09/11/2024 Active Encounters Date Type Department Care Team Description 09/11/2024 9:15 AM EDT Consult Orthopedic Surgery - [place] [address] [place] [phone] Roosevelt Lozano, PETER Controlled type 2 diabetes with neuropathy (CMS/HCC V24, CMS/HCC V28) (Primary Dx); Lumbosacral radiculopathy; Arthritis of both feet from Last 3 Months Surgical History Surgery Date Site/Laterality Comments CARPAL TUNNEL RELEASE Bilateral PROCEDURE: [place] NEUROPLASTY &/TRANSPOS MEDIAN NRV CARPAL TUNNE Medical History Medical History Date Comments Uncontrolled type 2 diabetes mellitus with diabetic neuropathy 03/04/2016 DX:Uncontrolled type 2 diabe aida mellitus with diabetic neuropathy Family History Medical History Relation Name Comments Hypertension Father Diabetes Mother Other: Other Sister 1 SLE Relation Name Status Comments Daughter Alive Father Alive Mother Alive Sister 1 Sister 2 Alive Sister 3 Alive Sister 4 Alive Sister 5 Alive Son 1 Alive Son 2 Alive Son 3 Alive Son 4 Alive Son 5 Alive Son 6 Alive Social History Tobacco Use Types Packs/Day Years Used Date Smoking Tobacco: Never Smokeless Tobacco: Never Alcohol Use Standard Drinks/Week Comments No 0 (1 standard drink = 0.6 oz pur e alcohol) Sex and Gender Information Value Date Recorded Sex Assigned at Not on file Legal Sex Male 11:45 PM EST Gender Identity Not on file Sexual Orientation Not on file Obstetrics History Last Filed Vital Signs Vital Sign Reading Time Taken Comments Blood Pressure 140/88 05/13/2022 11:01 AM EDT Pulse - - Temperature - - Respiratory Rate - - Oxygen Saturation - - Inhaled Oxygen Concentration - - Weight 119 kg (262 lb) 05/13/2022 11:01 AM EDT Height 170.2 cm (5' 7 ) 05/13/2022 11:01 AM EDT Body Mass Index 41.03 05/13/2022 11:01 AM EDT Plan of Treatment Health Maintenance Due Date Last Done Comments Diabetes: Annual GFR (Glomerular Filtration Rate) 1979 Diabetes: Annual Foot Exam 12/11/1989 Diabetes: Annual Retina Eye Exam 12/11/1989 Hepatitis B Vaccines (1 of 3 - 19+ 3-dose series) 12/11/1998 Pneumococcal Vaccine: Pediatrics (0 to 5 Years) and At-Risk Patients (6 to 49 Years) (2 of 2 - PPSV23) 07/06/2016 05/11/2016, 03/20/2012 Cholesterol Screening (Lipid Panel) 03/14/2023 Diabetes: Annual Urine Albumin-Creatinine Ratio (uACR) 03/14/2023 Diabetes: Blood Sugar Contro l Test (HGBA1C) 03/14/2023 HIV Screening 03/14/2023 Hepatitis C Screening 03/14/2023 Hypertension/CHF/CAD Annual BMP Blood Test 03/14/2023 Social Influencers of Health Screening 03/14/2023 Depression Screening 02/14/2024 COVID-19 Vaccine (4 - 2024-2 6 season) 2024 12/18/2020, 06/02/2020, 05/11/2020 Influenza Vaccine (#1) 2024 , 01/15/2021 DTaP,Tdap,and Td Vaccines (3 - Td or Tdap) 05/11/2026 05/11/2016, 03/20/2012 HIB Vaccines Aged Out No longer eligi ble based on patient's age to complete this topic HPV Vaccines Aged Out No longer eligi ble based on patient's age to complete this topic Hepatitis A Vaccines Aged Out No long er eligible based on patient's age to complete this topic IPV Vaccines Aged Out No longer eligi ble based on patient's age to complete this topic MMR Vaccines Aged Out No longer eligi ble based on patient's age to complete this topic Meningococcal ACWY Vaccine Aged Out N o longer eligible based on patient's age to complete this topic Meningococcal B Vaccine Aged Out No l onger eligible based on patient's age to complete this topic RSV Immunization Patients Under 20 months Aged Out No longer eligible b ased on patient's age to complete this topic Varicella Vaccines Aged Out No longer eligible based on patient's age to complete this topic Procedures Procedure Name Priority Date/Time Associated Diagnosis Comments XR LUMBAR SPINE 2-3 VIEWS Routine 09/11/2024 9:55 AM EDT Lower back pain from Last 3 Months Results * XR Lumbar Spine 2-3 Views (09/11/2024 9:55 AM EDT) Anatomical Region Laterality Modality Spine, L-spine Computed Radiogr aphy 09/11/2024 3:29 PM EDT Impressions 09/11/2024 3:30 PM EDT Degenerative changes as described. -------- FINAL REPORT -------- Dictated By: Shonna Aly Dictated Date: 09/11/2024 15:29 ET Assigned Physician: Shonna Aly Reviewed and Electronically Signed By: Shonna Aly Signed Date: 09/11/2024 15:30 ET Workstation ID: [id number] Transcribed By: Self Edit Transcribed Date: 09/11/2024 15:29 ET Narrative 09/11/2024 3:30 PM EDT LUMBOSACRAL SPINE, 2 VIEWS HISTORY: Back pain. FINDINGS: There is minor curvature of the spine.. No fractures are seen. There is a large bridging osteophyte on the right at T11-T12. There is minor endplate spurring at several levels. There is facet hypertrophy of the lower lumbar spine. Procedure Note Shonna Aly MD - 09/11/2024 LUMBOSACRAL SPINE, 2 VIEWS HISTORY: Back pain. FINDINGS: There is minor curvature of the spine.. No fractures are seen. There is a large bridging osteophyte on the right at T11-T12. There is minor endplate spurring at several levels. There is facet hypertrophy of the lower lumbar spine. IMPRESSION: Degenerative changes as described. -------- FINAL REPORT -------- Dictated By: Shonna Aly Dictated Date: 09/11/2024 15:29 ET Assigned Physician: Shonna Aly Reviewed and Electronically Signed By: Shonna Aly Signed Date: 09/11/2024 15:30 ET Workstation ID: [id number] Transcribed By: Self Edit Transcribed Date: 09/11/2024 15:29 ET Roosevelt Lozano DPM IMG XR PROCEDURES Final Res ult from Last 3 Months Insurance ([facility]) Care Teams [employer] Relationship Specialty Start Date End Date Urbano Raines DO [address] [place], [place] [id number] PCP - General 05/11/22
--- OUTSIDE RECORDS SUMMARY | 2024-11-08 14:32 | XMS_ITS | Patient Health Record ---
Demographics Address [address] [place] [address] Mobile Email Address Preferred Language es Marital Status Baptism Affiliation Unknown Race Unknown Additional Race(s) Other Race Ethnic Group or Author Organization [facility] Address [address] [place] [address] Support Name Relationship Address Phone Delma Cruzline Emergency Contact [address] [facility] [address] [address] [place] [address] Jim Ross Guarantor Unknown [phone] Care Team Providers Care Stucco Mason Name Role Phone Urbano Raines DO Primary Care Provider [place] Unavailable [phone] Allergies No Known Allergies Reason For Referral No Information Medications Medication SIG (Take, Route, Frequency, Duration) Notes Start Date End Date Status hydroCHLOROthiazide 12.5 MG 1 tablet in the morning Orally Once a day; Duration: 30 day(s) Active Basaglar KwikPen Act abbi Atorvastatin Calcium 20 MG 1 tablet Oral ly Once a day; Duration: 30 day(s) Active Doxazosin Mesylate 1 MG 1 tablet Orally Once a day; Duration: 30 day(s) Active Pioglitazone HCl 15 MG 1 tablet Orally O nce a day; Duration: 30 day(s) Active Irbesartan 300 MG 1 tablet Orally Once a day; Duration: 30 day(s) Active Trulicity 4.5 MG/0.5ML as directed Subcutaneous Active metFORMIN HCl 1000 MG 1 tablet with a me al Orally Once a day; Duration: 30 day(s) Active Piroxicam 20 MG TAKE 1 CAPSULE BY MO [facility] EVERY DAY WITH FOOD FOR 30 DAYS; Duration: 30 Active amLODIPine Besylate 10 MG 1 tablet Orall y Once a day; Duration: 30 day(s) Active Famotidine 20 MG 1 tablet at bedtime as needed Orally Once a day; Duration: 30 day(s) Active Social History Tobacco Use: [...] Problem Status W/U Status Risk Notes Problem Polyneuropathy due to type 2 diabetes mellitus (293912612) Type 2 diabetes mellitus with polyneuropathy (E11.42) Active confirmed Plan Of Treatment Pending Test Test Name Order Date X ray : Foot, left 3V 02/22/2022 X ray : Foot, right 3V 02/22/2022 Insurance Providers Payer Name Payer Address Payer Phone Subscriber Number Group Number Insured Name Patient Relationship to Insured Coverage Start Date Coverage End Date [facility] [address] [place] [address] [id number] Jim Woo Self - patient is the insured Medical (General) History Medical History History ICD Code Hypertension type II diabetes Gall bladder problems Numbness Surgical History Surgery Date(Month/Year) carpal tunnel surgery
--- OUTSIDE RECORDS SUMMARY | 2024-11-08 14:32 | XMS_ITS | Clinical Summary ---
Author Organization [facility] Address [address] [place] [address] Phone Support Name Relationship Address Phone Justyna Cruz Personal Relationship [address] [address] Care Team Providers Care Blade Operator Name Role Phone Jorge Clark MD Primary Care Provider [phone] Allergies No known active allergies Medications LISINOPRIL ORAL Take by mouth. Active metformin HCl (METFORMIN ORAL) Take by mouth. Active GABAPENTIN ORAL Take by mouth. Active Social History Tobacco Use Types Packs/Day Years Used Date Smoking Tobacco: Never Assessed Education Answer Date Recorded Are you interested in more education? Not on inderjit e 10/24/2023 Are you concerned about learning? Not on file 10/24/2023 No 10/24/2023 No 10/24/2023 Digital Access Answer Date Recorded No 10/24/2023 No 10/24/2023 Reliable internet access at home? Not on file 10/24/2023 Device with a working camera? Not on file Intimate Partner Violence Answer Date R ecorded Are you denied basic needs s uch as food, clothing, or medical care? No 10/23/2023 In the past 12 months have y ou been in a relationship with a person who hurts, threatens, or tries to control you? No 10/23/2023 Are you denied basic needs s uch as food, clothing, or medical care? No 10/23/2023 In the past 12 months have y ou been in a relationship with a person who hurts, threatens, or tries to control you? No 10/23/2023 Sex and Gender Information Value Date Recorded Sex Assigned at Male 10/23/2023 4:51 PM EDT Legal Sex Male 9:21 AM EST Gender Identity Male 10/23/2023 4:51 PM EDT Sexual Orientation Straight 10/23/2023 4: 51 PM EDT Last Filed Vital Signs Vital Sign Reading Time Taken Comments Blood Pressure 158/90 10/23/2023 7:00 PM EDT Pulse 98 10/23/2023 6:47 PM EDT Temperature 37 C (98.6 F) 10/23/2023 4:50 PM EDT Respiratory Rate 18 10/23/2023 6:47 PM EDT Oxygen Saturation 99% 10/23/2023 7:00 PM EDT Inhaled Oxygen Concentration - - Weight 114.3 kg (252 lb) 10/23/2023 4:50 PM EDT Height 167.6 cm (5' 6 ) 10/23/2023 4:50 PM EDT Body Mass Index 40.67 10/23/2023 4:50 PM EDT Plan of Treatment Health Maintenance Due Date Last Done Comments Adult Td,Tdap Booster 1979 LIPID PANEL 1979 DEPRESSION SCREENING 1991 SMOKING Hx and SMOKELESS TOB ACCO SCREENING 12/11/1992 HEPATITIS C SCREENING 12/11/1997 HIV ONE-TIME SCREENING (18-6 5 YEARS) 12/11/1997 SCREENING FOR DIABETES 12/11/2014 INFLUENZA VACCINE (#1) 2024 COVID-19 VACCINE ( - 2023-2 5 season) 2024 CREATININE LEVEL 10/22/2024 10/23/2023 POTASSIUM LEVEL 10/22/2024 10/23/2023 HEPATITIS A VACCINES Aged Out No long er eligible based on patient's age to complete this topic HIB VACCINES Aged Out No longer eligi ble based on patient's age to complete this topic MENINGOCOCCAL VACCINES (ACWY) Aged Out No longer eligible based on patient's age to complete this topic MENINGOCOCCAL VACCINES (B) Aged Out N o longer eligible based on patient's age to complete this topic PNEUMOCOCCAL VACCINES (0-49 years) Aged Out No longer eligible based on patient's age to complete this topic Medical Devices Not on file Procedures Procedure Name Priority Date/Time Associated Diagnosis Comments BASIC METABOLIC PANEL STAT 10/23/2023 5:10 PM EDT from Last 3 Months or Most Recently Relevant to Health Maintenance Results * (ABNORMAL) Basic metabolic panel (10/23/2023 5:10 PM EDT) SODIUM 132(L) 133 - 146 mmol/L [facility] CHLORIDE 96 96 - 108 mmol/L [facility] POTASSIUM 4.6 3.3 - 5.1 mmol/L [facility] Comment:Specimen slightly he molyzed, result may be falsely elevated. CO2 22 21 - 35 mmol/L [facility] BUN 12 6 - 19 mg/dL [facility] CREATININE 0.80 0.5 - 1.5 mg/dL [facility] GLUCOSE 477(H) 70 - 99 mg/dL [facility] CALCIUM 9.4 8.4 - 10.3 mg/dL [facility] EGFR 113 >59 mL/min/1.7 3m2 [facility] Comment:Estimated glomerular filtration rate calculated using the CKD-EPI refit equation. ANION GAP 19 10 - 20 mmol/L [facility] Blood 10/23/2023 5:10 PM EDT 10/23/2023 5:15 PM EDT us Reginald Ross MD LAB BLOOD ORDERABLES Final Resu lt Performing Organization Address City/State/[facility] Co de Phone Number [facility] [address] [place] [address] from Last 3 Months or Most Recently Relevant to Health Maintenance Insurance PPO BLUE CROSS OUT OF STATE PPO BLUE CROSS OUT OF STATE PPO BLUE CROSS OUT OF STATE PPO BLUE CROSS OUT OF STATE PPO BLUE CROSS [facility] PPO Care Teams Blade Operator Relationship Specialty Start Date End Date Jorge Clark MD [address] [place] [address] PCP - General Internal Medicine 10/23/23 Additional Source Comments The information contained in this document represents components of the legal health record. It is not the complete legal health record.[facility]
== END 2024-11-08 14:08 | disposition home or self-care (01) ==
LOC: HO.HMCH 13:14
PROVIDERS: PCP Internal Medicine; Visit Provider Internal Medicine
DX: Z00.00 Encounter for general adult medical examination without abnormal findings (principal); E11.65 Type 2 diabetes mellitus with hyperglycemia; I10 Essential (primary) hypertension; E78.00 Pure hypercholesterolemia, unspecified; E66.9 Obesity, unspecified; K76.0 Fatty (change of) liver, not elsewhere classified; E29.1 Testicular hypofunction

== ENCOUNTER 2025-02-04 15:24 | Outpatient (AMB) | payer BC, SELFPAY ==
--- NOTE | 2025-02-04 15:26 | A.OFFVIS_ITS ---
Intake Visit Reasons: testicular hypofunction SET /UA Intake Note: New Patient is present for testicular Hypofunction Urology Rx:Sildenafil Blood Thinners:none NKDA Imaging completed: none Labs done 10/05/24 Total Testosterone 267 Online Advertising Director Required: No Accompanied by: Self / Same As Patient Allergies No Known Allergies (No Known Allergies*) Allergy (Verified 02/04/25 15:27) HPI Comments Details: Jim is a pleasant male. He is a patient of Dr. NEWTON. He seen for the following urologic conditions - borderline testosterone in setting of diabetes Symptoms in setting of borderline testosterone with a diabetic Discussed testosterone replacement versus mandaen Trial SARM Prescription provided Borderline testosterone Reports fatigue, lack of energy Progressive symptoms Laboratories - 10/07 270, HBA1c 6,9% Has other metabolic markers including elevated triglycerides, elevat of fatty liver disease ed transaminases suggestive PFSH Medical History (Updated 02/09/25 @ 21:47 by Omar Pino MD) Erectile dysfunction Surgical History History of carpal tunnel release of both wrists Family History Mother Diabetes Father Hypertension Sister No problems noted. Sister Lupus Thyroid condition Sister Hypertension Sister No problems noted. Son No problems noted. Son No problems noted. Son No problems noted. Son No problems noted. Son No problems noted. Son No problems noted. Daughter No problems noted. Social History (Updated 11/08/24 @ 13:45 by Jorge Clark MD) Housing: Apartment Alcohol intake: current Comment: 2x a week-6 pCK Patient Tobacco Use Status: Former Tobacco user Tobacco use type: Cigarette Years Smoked: quit 2013 e-Cigarette/Vaping Use: Former Use Second Hand Smoke Exposure: Yes service: No Current occupational status: employed Current occupation: Merchandizer at [employer] Current occupational exposures/hazards: No Cognitive needs: No Hearing needs: No Vision needs: No Review of Systems Const Denies chills and Denies fever(s) Card Reports no additional complaints and Denies syncope Resp Denies cough GI Denies abdominal pain and Denies heartburn Reports as per HPI and Denies change in libido Neuro Denies syncope Psych Denies change in libido Endo Denies change in libido Physical Exam Const General: cooperative, healthy appearing, comfortable and no acute distress Orientation/consciousness: patient oriented x3 HEENT Face and sinus: Yes normal facial exam Mouth: moist mucous membranes Neck Neck: Yes normal visual inspection, Yes full ROM and Yes trachea midline Chest Chest palpation & inspection: normal inspection of the chest Resp Effort & Inspection: normal respiratory effort, able to speak in complete sentences and no respiratory distress GI Inspection: Yes normal to inspection Back/Spine/Pelvis Cervical Spine: normal cervical lordosis Thoracic/Lumbar Spine: thoracic and lumbar spine normal to inspection Skin General skin exam: no rashes or lesions noted Neuro General: patient oriented x3, gait normal, tone normal and moves all extremities Extrem General: Yes normal to inspection and Yes capillary refill normal Assessment & Plan Assessment & Plan (1) Erectile dysfunction associated with type 2 diabetes mellitus: Code(s): E11.69 - Type 2 diabetes mellitus with other specified complication; N52.1 - Erectile dysfunction due to diseases classified elsewhere Category: Medical (2) Hypogonadism in male: Code(s): E29.1 - Testicular hypofunction Category: Medical Plan Trial testosterone mandaen 4 month follow-up lab work Orders: Orders Lutenizing Hormone 02/08/25 E29.1 - Testicular hypofunction Testosterone, Free/Total 02/08/25 E29.1 - Testicular hypofunction Medications: New [enclomiphene] [facility] - Fax Patient Cell Number - [phone] 1 tab PO DAILY 90 tabs 1RF [facility] - Fax 90 days E29.1 - Testicular hypofunction Patient Instructions: This note is constructed using voice recognition software. While every effort has been made to ensure accuracy head tennis professional errors may have been included. Imaging studies, laboratory and physical exam results were discussed and reviewed in detail. No major barriers to patient understanding were identified. An opportunity to ask questions regarding the treatment plan was provided. All questions were answered. The patient expressed understanding and agreement with the above treatment plan. The patient is aware they should contact our office by phone for worsening of their current condition or the appearance of new urologic symptoms. Compliance is encouraged with any medications and followup testing that is ordered. It is a privilege to participate in the urologic care of your patient. If you have any questions or concerns regarding treatment for the above conditions, or other urologic issues, please do not hesitate to contact me. The office telephone contact is [phone]. Sincerely, Dr Omar Pino MD, [facility] - Urology Compassionate Specialist Care for the Genitourinary System Coding Level of Care Code New Pt Level 4 (06058) Diagnoses Erectile dysfunction associated with type 2 diabetes mellitus E11.69; N52.1 Hypogonadism in male E29.1
--- OUTSIDE RECORDS SUMMARY | 2025-02-04 16:32 | XMS_ITS | Clinical Summary ---
Author Organization [facility] Address [address] [place] [address] Phone Support Name Relationship Address Phone Justyna Cruz Personal Relationship [address] [place] [address] [place] [address] Care Team Providers Care Bridge Operator Slip Name Role Phone Jorge lCark MD Primary Care Provider [phone] Allergies No known active allergies Medications LISINOPRIL [...] VACCINE (#1) 2024 COVID-19 VACCINE ( - 2024-2 6 season) 2024 CREATININE LEVEL 10/22/2024 10/23/2023 POTASSIUM LEVEL 10/22/2024 10/23/2023 COLOGUARD 12/11/2024 COLONOSCOPY 12/11/2024 COLORECTAL CANCER SCREENING 12/11/2024 FIT TEST 12/11/2024 FOBT 12/11/2024 SIGMOIDOSCOPY 12/11/2024 VIRTUAL COLONOSCOPY 12/11/2024 HEPATITIS A VACCINES Aged Out No long [...] Date/Time Associated Diagnosis Comments BASIC METABOLIC PANEL (BMP) STAT 10/23/2023 5:10 PM EDT from Last 3 Months or Most Recently Relevant to Health Maintenance Results * (ABNORMAL) Basic metabolic panel (10/23/2023 5:10 PM EDT) SODIUM 132(L) 133 - 146 mmol/L [facility] CHLORIDE 96 96 - 108 mmol/L [facility] POTASSIUM 4.6 3.3 - 5.1 mmol/L [facility] Comment:Specimen slightly he molyzed, result may be falsely elevated. CO2 22 21 - 35 mmol/L [facility] BUN 12 6 - 19 mg/dL [facility] CREATININE 0.80 0.5 - 1.5 mg/dL [facility] GLUCOSE 477(H) 70 - 99 mg/dL [facility] CALCIUM 9.4 8.4 - 10.3 mg/dL [facility] EGFR 113 >59 mL/min/1.7 3m2 [facility] Comment:Estimated glomerular filtration rate calculated using the CKD-EPI refit equation. ANION GAP 19 10 - 20 mmol/L [facility] Blood 10/23/2023 5:10 PM EDT 10/23/2023 5:15 PM EDT us Reginald Ross MD LAB BLOOD BKR ORDERABLES Final Result [facility] [address] [place] [address] from Last 3 Months or Most Recently Relevant to Health Maintenance Insurance [place] [address] OUT STATE PPO BLUE CROSS OUT OF STATE PPO BLUE CROSS OUT OF STATE PPO BLUE CROSS OUT OF STATE PPO BLUE CROSS OUT OF STATE PPO BLUE CROSS OUT OF STATE PPO Care Teams Bridge Operator Slip Relationship Specialty Start Date End Date Jorge Clark MD [address] [place] [address] Drive [address] [place] [address] PCP - General Internal Medicine 10/23/23 Additional Source Comments The information contained in this document represents components of the legal health record. It is not the complete legal health record.[facility]
--- OUTSIDE RECORDS SUMMARY | 2025-02-04 16:32 | XMS_ITS | Clinical Summary ---
Author Organization [facility] Address [address] [place] [phone] Phone Care Team Providers Care Handle Assembler Name Role Phone Urbano Raines DO Primary Care Provider Allergies No known active allergies Surgical History Surgery Date Site/Laterality Comments CARPAL TUNNEL RELEASE Bilateral PROCEDURE: [place] NEUROPLASTY &/TRANSPOS MEDIAN NRV CARPAL TUNNE Medical [...] on file Sexual Orientation Not on file Last Filed Vital Signs Vital Sign Reading [...] Health Maintenance Due Date Last Done Comments Colorectal Cancer Screening: Colonoscopy 1979 Diabetes: Annual GFR (Glomerular Filtration Rate) 1979 Diabetes: Annual Foot Exam 12/11/1989 Diabetes: Annual Retina Eye Exam 12/11/1989 Hepatitis B Vaccines (1 of 3 - 19+ 3-dose series) 12/11/1998 HPV Vaccines (1 - 3-dose SCD M series) 12/11/2006 Pneumococcal Vaccine: Pediatrics (0 to 5 Years) and At-Risk Patients (6 to 49 Years) (2 of 2 - PPSV23, PCV20, or PCV21) 07/06/2016 05/11/2016, 03/20/2012 Cholesterol Screening (Lipid Panel) [...] - Td or Tdap) 05/11/2026 05/11/2016, 03/20/2012 RSV Immunization Adult Patients (1 - 1-dose 75+ series) 12/11/2054 HIB Vaccines Aged Out No longer eligi [...] on patient's age to complete this topic Insurance [facility] ([facility]) Care Teams Handle Assembler Relationship Specialty Start Date End Date Urbano Raines DO [address] [place] [id number] PCP - General 05/11/22
--- OUTSIDE RECORDS SUMMARY | 2025-02-04 16:32 | XMS_ITS | Patient Health Record ---
Demographics Address [address] [place] [address] Mobile Email Address Preferred Language es Marital Status Spiritism Affiliation Unknown Race Unknown Additional Race(s) Other Race Ethnic Group or Author Organization [facility] Address [address] [place] [address] Support Name Relationship Address Phone Delma Cruzline Emergency Contact [address] [facility] [address] [address] [place] [address] Jim Ross Guarantor Unknown [phone] Care Team Providers Care Stack Clerk Name Role Phone Urbano Raines DO Primary Care Provider [place] Unavailable [phone] Allergies No Known Allergies Reason For Referral [...] 20 MG TAKE 1 CAPSULE BY [place] [facility] EVERY DAY WITH FOOD FOR 30 DAYS; [...] Polyneuropathy due to type 2 diabetes mellitus (192936910) Type 2 diabetes mellitus with polyneuropathy (E11.42) Active confirmed Plan Of Treatment Pending Test Test Name Order Date X ray : Foot, left 3V 02/22/2022 X ray : Foot, right 3V 02/22/2022 Insurance Providers Payer Name Payer Address Payer Phone Subscriber Number Group Number Insured Name Patient Relationship to Insured Coverage Start Date Coverage End Date [facility] [address] [place] [address] [id number] Jim Woo Self - patient is the insured Medical (General) History Medical History History ICD Code Hypertension type II diabetes Gall bladder problems Numbness Surgical History Surgery Date(Month/Year) carpal tunnel surgery
== END 2025-02-04 15:58 | disposition home or self-care (01) ==
LOC: HO.HUSH 15:25
PROVIDERS: PCP Internal Medicine; Visit Provider Urology
DX: E11.69 Type 2 diabetes mellitus with other specified complication (principal); N52.1 Erectile dysfunction due to diseases classified elsewhere; E29.1 Testicular hypofunction
CPT/HCPCS: 99204

== ENCOUNTER 2025-02-08 07:12 | Outpatient (REF) | payer BC, SELFPAY ==
--- OUTSIDE RECORDS SUMMARY | 2025-02-08 07:16 | XMS_ITS | Patient Health Record ---
Demographics Address [address] [place] [address] Mobile Email Address Preferred Language es Marital Status Tenriism Affiliation Unknown Race Unknown Additional Race(s) Other Race Ethnic Group or Author Organization [facility] Address [address] [place] [address] Support Name Relationship Address Phone Delma Cruzline Emergency Contact [address] 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.42) Active confirmed Plan Of Treatment Pending Test Test Name Order Date X ray : Foot, left 3V 02/22/2022 X ray : Foot, right 3V 02/22/2022 Insurance Providers Payer Name Payer Address Payer Phone Subscriber Number Group Number Insured Name Patient Relationship to Insured Coverage Start Date Coverage End Date [facility] [address] [place] [address] [id number] Jim Woo Self - patient is the insured Medical (General) History Medical History History ICD Code Hypertension type II diabetes Gall bladder problems Numbness Surgical History Surgery Date(Month/Year) carpal tunnel surgery
--- OUTSIDE RECORDS SUMMARY | 2025-02-08 07:17 | XMS_ITS | Clinical Summary ---
Author Organization [facility] Address [address] [place] [address] Phone Support Name Relationship Address Phone Justyna Cruz Personal Relationship [address] [place] [address] [address] Care Team Providers Care Concrete Buildings Assembler Name Role Phone Jorge Clark MD Primary Care Provider [phone] Allergies No known active allergies Medications LISINOPRIL [...] EDT) SODIUM 132(L) 133 - 146 mmol/L [facility] CHLORIDE 96 96 - 108 mmol/L [facility] POTASSIUM 4.6 3.3 - 5.1 mmol/L [facility] Comment:Specimen slightly he molyzed, result may be falsely elevated. CO2 22 21 - 35 mmol/L [facility] BUN 12 6 - 19 mg/dL [facility] CREATININE 0.80 0.5 - 1.5 mg/dL [facility] GLUCOSE 477(H) 70 - 99 mg/dL [facility] CALCIUM 9.4 8.4 - 10.3 mg/dL [facility] EGFR 113 >59 mL/min/1.7 3m2 [facility] Comment:Estimated glomerular filtration rate calculated using the CKD-EPI refit equation. ANION GAP 19 10 - 20 mmol/L [facility] Blood 10/23/2023 5:10 PM EDT 10/23/2023 5:15 PM EDT us Reginald Ross MD LAB BLOOD BKR ORDERABLES Final Result [facility] [address] [place] [address] from Last 3 Months or Most Recently Relevant to Health Maintenance [place] [place] [address] OUT STATE PPO BLUE CROSS OUT OF STATE PPO BLUE CROSS OUT OF STATE PPO BLUE CROSS OUT OF STATE PPO BLUE CROSS OUT OF STATE PPO BLUE CROSS OUT OF STATE PPO Care Teams Concrete Buildings Assembler Relationship Specialty Start Date End Date Jorge Clark MD [address] [place] [address] Drive [address] [place] [address] PCP - General Internal Medicine 10/23/23 Additional Source Comments The information contained in this document represents components of the legal health record. It is not the complete legal health record.[facility]
--- OUTSIDE RECORDS SUMMARY | 2025-02-08 07:17 | XMS_ITS | Clinical Summary ---
Author Organization [facility] Address [address] [place] [phone] Phone Care Team Providers Care Career And Technology Education Teacher Name Role Phone Urbano Raines DO Primary Care Provider [phone] Allergies No known active allergies Surgical History Surgery Date Site/Laterality Comments CARPAL TUNNEL RELEASE Bilateral PROCEDURE: [place] NEUROPLASTY &/TRANSPOS MEDIAN NRV CARPAL TUNNE Medical [...] patient's age to complete this topic Insurance [facility] ([facility]) Care Teams Career And Technology Education Teacher Relationship Specialty Start Date End Date Urbano Raines DO [address] [place] [address] PCP - General 05/11/22
[2025-02-08 07:26] LABS: MANUAL DIFF FLAG NO
[2025-02-08 07:59] LABS: Hematocrit 41.8 % (42.0-52.0); Hemoglobin 14.5 g/dl (14.0-18.0); Imm Gran Abs Auto 0.04 X10*3/uL (0.00-0.03); Imm Gran Pct Auto 0.6 % (0.0-0.4); Lymphocytes Absolute Auto 2.9 X10*3/uL (1.2-4.9); Mean Corpuscular HGB Conc 34.7 g/dl (31.0-36.0); Mean Corpuscular Hemoglobin 31.0 pg (27.0-33.0); Mean Corpuscular Volume 89.3 fL (80.0-98.0); NRBC Abs Auto 0.000 X10*3/uL (0.0-0.012); NRBC Pct Auto 0.0 /100WBC (0.0-0.2); Platelet Count 276 X10*3/uL (160-400); Red Blood Count 4.68 X10*6/uL (4.60-5.80); White Blood Count 7.1 X10*3/uL (4.8-10.8)
[2025-02-08 08:34] LABS: Alanine Aminotransferase 72 U/L (0-40); Albumin Level 4.6 g/dL (3.5-5.0); Alkaline Phosphatase 53 U/L (39-117); Anion Gap 14 (12-20); Aspartate Amino Transferase 36 U/L (5-37); Blood Urea Nitrogen 12 mg/dL (9-16); Calcium 9.3 mg/dL (8.4-10.2); Carbon Dioxide 22 mmol/L (22-29); Chloride 107 mmol/L (96-108); Cholesterol 156 mg/dL (<200); Estimated Glomerular Filt Rate > 60; HDL Cholesterol 36 mg/dL (>40); Potassium 4.6 mmol/L (3.3-5.1); Sodium 138 mmol/L (135-145); Total Protein 7.8 g/dL (6.5-8.0); Triglycerides 181 mg/dL (<150)
[2025-02-08 08:42] LABS: Free T4 (Free Thyroxine) 0.92 ng/dL (0.71-1.85); Thyroid Stimulating Hormone 1.13 uIU/mL (0.32-4.0)
== END 2025-02-08 07:13 | disposition home or self-care (01) ==
LOC: HO.LAB 07:12
PROVIDERS: PCP Internal Medicine; Visit Provider Internal Medicine
DX: E11.65 Type 2 diabetes mellitus with hyperglycemia (principal); E78.00 Pure hypercholesterolemia, unspecified
CPT/HCPCS: 36415; 80053; 80061; 83036; 84439; 84443; 85025